=== PATIENT | male | born 1960 | race Caucasian/White ===

== ENCOUNTER 2020-07-22 09:45 | Outpatient (REF) | payer MEDICARE, OTHER, SELFPAY | END 2020-07-22 09:46 | disposition home or self-care (01) | LOC: HO.LAB 09:45 | PROVIDERS: Visit Provider Internal Medicine | DX: Z20.828 Contact with and (suspected) exposure to other viral communicable diseases (principal) | CPT/HCPCS: C9803; U0003 ==

== ENCOUNTER 2020-08-09 16:21 | Emergency (ER) | payer MEDICARE, OTHER, SELFPAY ==
--- NOTE | 2020-08-09 | XR_ITS ---
EXAMINATION: XR CHEST CLINICAL INFORMATION: Chest pain COMPARISON: Chest x-ray 09/25/2012 TECHNIQUE: 2 views of the chest were obtained. FINDINGS: Lungs are clear. No pulmonary vascular congestion. There is no pleural effusion. The heart size is normal. The cardiac and mediastinal contours are normal. Orthopedic plate and screw at lower cervical spine. No acute osseous abnormality. XR/XR chest 2V IMPRESSION: Unremarkable examination.
[2020-08-09 16:33] VITALS: BP 140/68; PULSE 93; RESP 20; TEMP 36.9; O2SAT 96; BMI 28.8
--- NOTE | 2020-08-09 16:44 | PC.NURSE ---
charge notified pt needs ekg, legal secretary receptionist also called.
--- NOTE | 2020-08-09 18:02 | PC.NURSE ---
marcela performed- nsr, brought back to charge to give to
[2020-08-09 18:04] VITALS: BP 141/72; PULSE 91; RESP 20; O2SAT 97
--- NOTE | 2020-08-09 19:06 | ED_ITS ---
HPI - Chest Pain General Chief Complaint: Chest Pain Stated Complaint: sholder and chest pain Time Seen by Provider: 08/09/20 18:24 Source: patient Mode of arrival: ambulatory Limitations: no limitations History of Present Illness HPI narrative: Patient comes to the emergency room complaining of chest pain for 4 days. Patient states yesterday got worse. Patient hold his primary care physician and he was asked to come to the emergency room. Patient states that he has 10/10 chest pain for the last 4 days, constant, radiating into his left shoulder blade. Patient states it is worse if he presses on his chest or if he moves his left arm. Denies cough, no fever, no abdominal pain. Patient is complaining of severe pain as he is watching TV and eating a large bag of [place] complaint: chest pain Related Data Home Medications Medication Instructions Recorded Confirmed albuterol sulfate [ProAir HFA] 2 puff PO Q4-6H PRN 08/09/20 08/09/20 aspirin 1 tab PO BEDTIME 08/09/20 08/09/20 atorvastatin 1 tab PO BEDTIME 08/09/20 08/09/20 blood pressure test kit-large 08/09/20 08/09/20 blood sugar diagnostic [FreeStyle 08/09/20 08/09/20 Lite Strips] cholecalciferol (vitamin D3) 1 tab PO QAM 08/09/20 08/09/20 [Vitamin D3] gabapentin 1 cap PO BEDTIME 08/09/20 08/09/20 insulin aspart U-100 [Novolog 10 unit SUBCUT BID 08/09/20 08/09/20 Flexpen U-100 Insulin] insulin glargine [Lantus Solostar 60 unit SUBCUT QAM 08/09/20 08/09/20 U-100 Insulin] lancets [TRUEplus Lancets] 08/09/20 08/09/20 metformin 1 tab PO BID 08/09/20 08/09/20 nicotine 1 patch TOPICAL DAILY 08/09/20 08/09/20 nicotine (polacrilex) 1 nuno PO Q4H 08/09/20 08/09/20 omeprazole 1 cap PO QAM 08/09/20 08/09/20 pen needle, diabetic [Pentips] 08/09/20 08/09/20 sildenafil [Viagra] 1 tab PO DAILY PRN 08/09/20 08/09/20 tiotropium bromide [Spiriva with 1 cap INHALATION DAILY 08/09/20 08/09/20 HandiHaler] varenicline [Chantix Starting 1 tab PO DIRECTED 08/09/20 08/09/20 Month Box] varicella-zoster [id number] (PF) 0.5 ml IM ONCE 08/09/20 08/09/20 [Shingrix (PF)] Allergies Allergy/AdvReac Type Severity Reaction Status Date / Time No Known Allergies Allergy Verified 08/09/20 16:33 Review of Systems Review of Systems: Constitutional : No Weight loss, No Fever, No Chills, No Night Sweats, No Fatigue, No Malaise ENT/Mouth : No Hearing loss, No Ear Pain, No Nasal Congestion, No Sinus Pain, No Hoarseness, No sore throat, No Rhinorrhea, No Swallowing Difficulty Eyes: No Eye Pain, No Swelling, No Redness, No Foreign Body, No Discharge, No Vision Changes Cardiovascular : Complaining of Chest Pain, No SOB, No Dyspnea on Exertion, No Orthopnea, No Edema, No Palpitations Respiratory : No Cough, No Sputum, No Wheezing, No Smoke Exposure, No Dyspnea Gastrointestinal : No Nausea, No Vomiting, No Diarrhea, No Constipation, No abdominal Pain, No Hematochezia, No Melena Genitourinary : no irregular bleeding, No Dysuria, No Urinary Frequency, No Hematuria, No Urinary Incontinence, No Urgency, No Flank Pain, No Urinary Flow Changes, No Hesitancy Musculoskeletal : Complaining of left scapular pain, No Myalgias, No Joint Swelling Skin : No Skin Lesions, No rash Neuro : No Weakness, No Numbness, No Paresthesias, No Loss of Consciousness, No Dizziness, No Headache Psych : No Anxiety/Panic, No Depression, No SI/HI/AH/VH, No Social Issues, Heme/Lymph: No Bruising, No Bleeding,No Lymphadenopathy Endocrine : No Polyuria, No Polydipsia, No Temperature Intolerance [facility] Past Medical History Medical History (Updated 08/10/20 @ 00:29 by Kasie Fung MD) Asthma Coronary artery disease Hyperlipidemia Hypertension Type 2 diabetes mellitus Social History Social History Advance Directives: No Advance Directives Information Provided: Yes Physical Exam Vital Signs: Vital Signs: Last Vital Signs Temp 97.8 F 08/09/20 23:27 Pulse 86 08/09/20 23:27 Resp 18 08/09/20 23:27 BP 129/77 08/09/20 23:27 Pulse Ox 98 08/09/20 23:27 Body Mass Index 28.8 Appearance: Alert. Oriented X3. No acute distress. Looks comfortable, no distress, comfortably in bed watching TV and eating Doritos Eyes: Pupils equal, round and reactive to light. ENT: Pharynx normal. Neck: Normal inspection. Neck supple. No lymph nodes noted. No crepitus CVS: Normal heart rate and rhythm. Pulses normal. Normal S1 and S2 reproducible chest pain to palpation and with left arm movement Respiratory: No respiratory distress. Breath sounds normal. No Wheezing. No rales Abdomen: Soft and nontender. No rigidity. No distention. good BS x4 Skin: Skin warm and dry. Normal skin color. Normal skin turgor. Extremities: No lower extremity edema. No lower extremity edema. No Lacerations. No Rash Neuro: Oriented X 3. No motor deficit. No sensory deficit. Moving all extermities. No slurred speech. Course Course Course Narrative: Patient no longer having chest pain. I discussed the labs with the patient, patient's troponin remained stable. Patient is well-appearing . I discussed with the patient that he may need a stress test, which he will discuss with his primary care physician. MDM - Chest Pain Lab Data Result diagrams: 08/09/20 19:52 08/09/20 19:52 Labs: Lab Results 08/09/20 08/09/20 08/09/20 Range/Units 19:52 19:52 19:52 WBC 8.9 (4.8-10.8) X10*3/uL RBC 4.71 (4.60-5.80) X10*6/uL Hgb 15.0 (14.0-18.0) g/dl Hct 44.9 (42-52) % MCV 95.3 (80-98) fL MCH 31.8 (27.0-33.0) pg MCHC 33.4 (31.0-36.0) g/dl RDW 12.0 (11.0-16.0) % Plt Count 236 (160-400) X10*3/uL MPV 10.8 (9.4-12.4) fL Immature Gran % (Auto) 0.3 (0.0-0.4) % Neut % (Auto) 55.7 (45-73) % Lymph % (Auto) 33.8 (20-40) % [place] % (Auto) 6.4 (2-11) % Eos % (Auto) 3.3 (0-4) % Baso % (Auto) 0.5 (0-2) % Lymph # (Auto) 3.0 (1.2-4.9) X10*3/uL [place] # (Auto) 0.6 (0.1-1.2) X10*3/uL Eos # (Auto) 0.3 (0.0-0.4) X10*3/uL Baso # (Auto) 0.0 (0.0-0.2) X10*3/uL Abs Immat Gran (auto) 0.03 (0.00-0.03) X10*3/uL Absolute Neuts (auto) 4.9 (2.0-8.3) X10*3/uL Absolute Nucleated RBC 0.000 (0.0-0.012) X10*3/uL Nucleated RBC % (auto) 0.0 (0.0-0.2) /100WBC Sodium 140 (135-145) mmol/L Potassium 4.3 (3.3-5.1) mmol/l Chloride 103 (96-108) mmol/L Carbon Dioxide 29 (22-29) mmol/L Anion Gap 12 (12-20) BUN 15 (9-16) mg/dL Creatinine 0.82 (0.5-1.4) mg/dL Estim Creat Clear Calc 105.4 Estimated GFR > 60 Random Glucose 238 H (60-115) mg/dL Calcium 8.9 (8.4-10.2) mg/dL Troponin I High Sens 9.0 (<3.5-35.0) ng/L 08/09/20 Range/Units 23:26 WBC (4.8-10.8) X10*3/uL RBC (4.60-5.80) X10*6/uL Hgb (14.0-18.0) g/dl Hct (42-52) % MCV (80-98) fL MCH (27.0-33.0) pg MCHC (31.0-36.0) g/dl RDW (11.0-16.0) % Plt Count (160-400) X10*3/uL MPV (9.4-12.4) fL Immature Gran % (Auto) (0.0-0.4) % Neut % (Auto) (45-73) % Lymph % (Auto) (20-40) % [place] % (Auto) (2-11) % Eos % (Auto) (0-4) % Baso % (Auto) (0-2) % Lymph # (Auto) (1.2-4.9) X10*3/uL [place] # (Auto) (0.1-1.2) X10*3/uL Eos # (Auto) (0.0-0.4) X10*3/uL Baso # (Auto) (0.0-0.2) X10*3/uL Abs Immat Gran (auto) (0.00-0.03) X10*3/uL Absolute Neuts (auto) (2.0-8.3) X10*3/uL Absolute Nucleated RBC (0.0-0.012) X10*3/uL Nucleated RBC % (auto) (0.0-0.2) /100WBC Sodium (135-145) mmol/L Potassium (3.3-5.1) mmol/l Chloride (96-108) mmol/L Carbon Dioxide (22-29) mmol/L Anion Gap (12-20) BUN (9-16) mg/dL Creatinine (0.5-1.4) mg/dL Estim Creat Clear Calc Estimated GFR Random Glucose (60-115) mg/dL Calcium (8.4-10.2) mg/dL Troponin I High Sens 7.3 (<3.5-35.0) ng/L Scores Heart Score History: -0- slightly suspicious ECG: -0- normal Age: -1- >45 - <65 Risk factory: -1- 1 or 2 risk factors Troponin: -0- < or = normal limit Score: 2 Risk: 1.7% Discharge Plan Discharge Clinical Impression: Atypical chest pain Patient Disposition: Home, Self-Care Instructions: Chest Pain (ED) Additional Instructions: Please follow-up with your primary care physician tomorrow. If you have any worsening or new symptoms, please return to the emergency room or call 911 Prescriptions: No Action metformin 500 mg tablet 1 tab PO BID RF: 0 atorvastatin 80 mg tablet 1 tab PO BEDTIME RF: 0 (DME) FreeStyle Lite Strips Strip MISCELLANEOUS TID RF: 0 sildenafil [Viagra] 25 mg tablet 1 tab PO DAILY PRN (Reason: Erectile Dysfunction) RF: 0 aspirin 81 mg tablet,delayed release (DR/EC) 1 tab PO BEDTIME RF: 0 nicotine 21 mg/24 hr patch 24 hour 1 patch topical DAILY RF: 0 gabapentin 300 mg capsule 1 cap PO BEDTIME RF: 0 omeprazole 20 mg capsule,delayed release(DR/EC) 1 cap PO QAM RF: 0 albuterol sulfate [ProAir HFA] 90 mcg/actuation HFA aerosol inhaler 2 puff PO Q4-6H PRN (Reason: Dyspnea) RF: 0 cholecalciferol (vitamin D3) [Vitamin D3] 10 mcg (400 unit) tablet 1 tab PO QAM RF: 0 nicotine (polacrilex) 2 mg lozenge 1 nuno PO Q4H RF: 0 insulin aspart U-100 [Novolog Flexpen U-100 Insulin] 100 unit/mL (3 mL) insulin pen 10 unit subcut BID RF: 0 Spiriva with HandiHaler 18 mcg capsule, w/inhalation device 1 cap inhalation DAILY RF: 0 Chantix Starting Month Box 0.5 mg (11)- 1 mg (42) tablets,dose pack 1 tab PO DIRECTED RF: 0 Lantus Solostar U-100 Insulin 100 unit/mL (3 mL) insulin pen 60 unit subcut QAM RF: 0 (DME) blood pressure test kit-large Kit MISCELLANEOUS QAM RF: 0 (DME) pen needle, diabetic [Pentips] 32 gauge x 5/32 needle MISCELLANEOUS TID RF: 0 (DME) lancets [TRUEplus Lancets] 33 gauge misc MISCELLANEOUS TID RF: 0 Shingrix (PF) 50 mcg/0.5 mL suspension for reconstitution 0.5 ml IM ONCE RF: 0
[2020-08-09] MEDS: Aspirin 325 MG TABLET PO (19:29)
--- NOTE | 2020-08-09 19:42 | ECG_ITS ---
Test Reason : CHEST PAIN Blood Pressure : / mmHG Vent. Rate : 082 BPM Atrial Rate : 082 BPM P-R Int : 150 ms QRS Dur : 086 ms QT Int : 390 ms P-R-T Axes : 051 010 063 degrees QTc Int : 455 ms Normal sinus rhythm Normal ECG When compared with ECG of 23-SEP-2012 11:15, No significant change was found Referred By: Kasie Fung Electronically Signed By:MAN MCPHERSON
[2020-08-09 19:57] LABS: MANUAL DIFF FLAG NO
[2020-08-09 19:59] LABS: Basophils Percent Auto 0.5 % (0-2); Eosinophils Absolute Auto 0.3 X10*3/uL (0.0-0.4); Eosinophils Percent Auto 3.3 % (0-4); Hematocrit 44.9 % (42-52); Imm Gran Abs Auto 0.03 X10*3/uL (0.00-0.03); Imm Gran Pct Auto 0.3 % (0.0-0.4); Lymphocytes Percent Auto 33.8 % (20-40); Mean Corpuscular HGB Conc 33.4 g/dl (31.0-36.0); Mean Corpuscular Hemoglobin 31.8 pg (27.0-33.0); Mean Corpuscular Volume 95.3 fL (80-98); Mean Platelet Volume 10.8 fL (9.4-12.4); Monocytes Absolute Auto 0.6 X10*3/uL (0.1-1.2); Monocytes Percent Auto 6.4 % (2-11); Neutrophils Absolute Auto 4.9 X10*3/uL (2.0-8.3); Neutrophils Percent Auto 55.7 % (45-73); Platelet Count 236 X10*3/uL (160-400); Red Blood Count 4.71 X10*6/uL (4.60-5.80); White Blood Count 8.9 X10*3/uL (4.8-10.8)
--- NOTE | 2020-08-09 20:05 | PC.NURSE ---
PER , SECOND EKG ORDER IS AN ACCIDENTAL DUPLICATE ORDER. MD TO CANCEL ORDER. NSR ON WELDER MANUFACTURE, VITAL SIGNS STABLE AT THIS TIME. MEDICATED WITH ASPIRIN 325MG ORDERED. REPORTS 9/10 CHEST PAIN AND IS TUNISIAN SPEAKING. WILL CONTINUE TO MONITOR.
[2020-08-09 20:24] LABS: Anion Gap 12 (12-20); Blood Urea Nitrogen 15 mg/dL (9-16); Calcium 8.9 mg/dL (8.4-10.2); Carbon Dioxide 29 mmol/L (22-29); Chloride 103 mmol/L (96-108); Creatinine Clr Calc Pharmacy 105.4; Estimated Glomerular Filt Rate > 60; Glucose Random 238 mg/dL (60-115); Potassium 4.3 mmol/l (3.3-5.1); Sodium 140 mmol/L (135-145)
[2020-08-09 21:49] VITALS: BP 131/74; PULSE 78; RESP 18; TEMP 36.8; O2SAT 96
[2020-08-09 23:27] VITALS: BP 129/77; PULSE 86; RESP 18; TEMP 36.6; O2SAT 98
[2020-08-09 23:56] LABS: Troponin-I High Sensitivity 7.3 ng/L (<3.5-35.0)
== END 2020-08-10 00:57 | disposition home or self-care (01) ==
PROVIDERS: Emergency Provider Emergency Medicine
DX: R07.89 Other chest pain (principal); M25.512 Pain in left shoulder; I10 Essential (primary) hypertension; E11.9 Type 2 diabetes mellitus without complications; I25.10 Atherosclerotic heart disease of native coronary artery without angina pectoris; Z79.82 Long term (current) use of aspirin; Z79.899 Other long term (current) drug therapy; Z79.4 Long term (current) use of insulin
CPT/HCPCS: 36415; 71046; 80048; 84484; 85025; 93005; 99283; 99284

== ENCOUNTER 2022-05-16 08:21 | Outpatient (REF) | payer MEDICARE, OTHER, SELFPAY ==
--- NOTE | ~2022-05-16 | US_ITS ---
EXAMINATION: US ABDOMEN COMPLETE CLINICAL INFORMATION: Right upper quadrant pain. COMPARISON: Ultrasound abdomen complete 11/05/2017. CT abdomen and pelvis 09/24/2011. TECHNIQUE: Real-time imaging of the abdominal viscera. FINDINGS: PANCREAS: The head and body the pancreas are normal. The tail is not well visualized due to bowel gas. ABDOMINAL AORTA: The proximal, mid, and distal segments are normal in caliber. INFERIOR VENA CAVA: Visualized portions are normal. LIVER: The liver is normal in size. The liver contour is normal. Liver echotexture is increased. No focal hepatic lesion. There is no intrahepatic biliary duct dilatation seen. GALLBLADDER: Normal. The gallbladder is physiologically distended without evidence of stones, sludge, polyps, wall thickening or pericholecystic fluid. COMMON BILE DUCT: Normal in caliber measuring 0.2 cm in diameter. RIGHT KIDNEY: Normal. No hydronephrosis. No renal calculi or focal parenchymal lesions. The kidney measures 12.8 cm in maximum dimension. LEFT KIDNEY: There is a 1.4 cm cyst in the mid to lower pole. No hydronephrosis or renal calculi. The kidney measures 13.1 cm in maximum dimension. SPLEEN: Normal. The spleen measures 11.6 cm in maximum dimension. FREE FLUID: None. US/US abdomen complete IMPRESSION: Echogenic liver probably representing fatty infiltration. Normal-appearing gallbladder. Small left renal cyst. Limited visualization of the tail of the pancreas.
== END 2022-05-16 08:22 | disposition home or self-care (01) ==
LOC: HO.US 08:21
PROVIDERS: Visit Provider Nurse Practitioner Primary Care
DX: R10.11 Right upper quadrant pain (principal)
CPT/HCPCS: 76700

== ENCOUNTER → 2022-06-14 14:58 | Outpatient (BNVA) | payer MEDICARE, MEDICAID, SELFPAY | PROVIDERS: PCP Nurse Practitioner Primary Care; Referring Provider Nurse Practitioner Primary Care; Visit Provider Nurse Practitioner | DX: Z01.818 Encounter for other preprocedural examination (principal); K21.9 Gastro-esophageal reflux disease without esophagitis; R10.11 Right upper quadrant pain; K59.00 Constipation, unspecified; Z86.010 Personal history of colon polyps; Z80.0 Family history of malignant neoplasm of digestive organs | CPT/HCPCS: 99202 ==

== ENCOUNTER 2022-10-18 11:36 | Day surgery (SDC) | payer MEDICARE, MEDICAID, SELFPAY ==
[2022-10-13 14:40] VITALS: BMI 28.9
--- NOTE | 2022-10-17 10:32 | HO.ANESPROP2 ---
Documented by User: Herlinda Graf NP 10/17/22 10:33 HPI - Anesthesia Eval Consult details Narrative: 62yo M for Colonoscopy PMFSH Active Problems Active Problems: All Active Problems (Updated 10/12/22 @ 10:59 by Nelli Bruno PA-C) Coronary artery disease (Acute) Left ventricular hypertrophy (Acute) Hypertension (Acute) Hyperlipidemia (Acute) Nicotine dependence, cigarettes, uncomplicated (Acute) Tubular adenoma of colon (Acute ~2011) Chronic idiopathic constipation (Acute) GERD (gastroesophageal reflux disease) (Acute) Cervical spondylosis with myelopathy (Acute) Anxiety (Acute) Past Medical History Medical History (Updated 10/12/22 @ 10:59 by Nelli Bruno PA-C) Asthma Coronary artery disease Hyperlipidemia Hypertension Nicotine dependence, cigarettes, uncomplicated Tubular adenoma of colon (~2011) Type 2 diabetes mellitus Family History Family History (Updated 06/14/22 @ 15:13 by VISHAL Doshi) Maternal Uncle Prostate cancer Family/Other Skin cancer Surgical History Surgical History (Updated 10/12/22 @ 10:52 by Nelli Bruno PA-C) History of cardiac cath (~2011) History of cervical discectomy History of colonoscopy Social History Social History (Updated 06/14/22 @ 15:14 by VISHAL Doshi) Alcohol intake: current Alcohol intake frequency: holidays/special occasions only Patient Tobacco Use Status: Current everyday Tobacco user Cigarettes Per Day: 10 Are you DNR?: No Advance Directives: No Advance Directives Information Provided: Yes Meds Allergies Allergy/AdvReac Type Severity Reaction Status Date / Time No Known Allergies Allergy Verified 06/14/22 15:09 Home Medications Medication Instructions Recorded Confirmed Last Taken Type albuterol sulfate 90 mcg/actuation 2 puff PO Q4-6H PRN Dyspnea 08/09/20 10/13/22 Unknown History aerosol inhaler (ProAir HFA) aspirin 81 mg tablet,delayed 1 tab PO BEDTIME 08/09/20 10/13/22 10/15/22 History release atorvastatin 80 mg tablet 1 tab PO BEDTIME 08/09/20 10/13/22 08/08/20 History blood pressure test kit-large 08/09/20 08/09/20 Unknown History blood sugar diagnostic (FreeStyle 08/09/20 08/09/20 Unknown History Lite Strips) cholecalciferol (vitamin D3) 10 1 tab PO QAM 08/09/20 10/13/22 08/09/20 History mcg (400 unit) tablet (Vitamin D3) gabapentin 300 mg capsule 1 cap PO BEDTIME 08/09/20 10/13/22 08/08/20 History insulin aspart U-100 100 unit/mL 10 unit subcut BID 08/09/20 08/09/20 08/09/20 History (3 mL) subcutaneous pen (Novolog FlexPen U-100 Insulin aspart) lancets 33 gauge (TRUEplus Lancets) 08/09/20 08/09/20 Unknown History omeprazole 20 mg capsule,delayed 1 cap PO QAM 08/09/20 10/13/22 08/09/20 History release pen needle, diabetic 32 gauge x 08/09/20 08/09/20 Unknown History (Pentips) sildenafil 25 mg tablet (Viagra) 1 tab PO DAILY PRN Erectile 08/09/20 10/13/22 Unknown History Dysfunction tiotropium bromide 18 mcg capsule 1 cap inhalation DAILY 08/09/20 10/13/22 08/09/20 History with inhalation device (Spiriva with HandiHaler) ammonium lactate 12 % lotion topical 06/14/22 Unknown History clotrimazole 1 % topical cream appl topical 06/14/22 Unknown History insulin glargine 100 unit/mL (3 68 unit subcut QAM 06/14/22 10/13/22 Unknown History mL) subcutaneous pen (Lantus Solostar U-100 Insulin) metformin 750 mg tablet,extended 1 tab PO BID 10/13/22 10/13/22 Unknown History release 24 hr Exam Exam Date and Time: October 17, 2022 1032 Height,Weight and Vital Signs: Height 5 ft 9 in Weight 88.904 kg Assessment and Plan Assessment Anesthesia Assessment: Chart Reviewed Documented by User: Liliane Copeland MD 10/18/22 12:02 PMFSH Past Medical History Medical History (Updated 10/12/22 @ 10:59 by Nelli Bruno PA-C) Asthma Coronary artery disease Hyperlipidemia Hypertension Nicotine dependence, cigarettes, uncomplicated Tubular adenoma of colon (~2011) Type 2 diabetes mellitus Family History Family History (Updated 06/14/22 @ 15:13 by VISHAL Doshi) Maternal Uncle Prostate cancer Family/Other Skin cancer Surgical History Surgical History (Updated 10/12/22 @ 10:52 by Nelli Bruno PA-C) History of cardiac cath (~2011) History of cervical discectomy History of colonoscopy History of Problems with Anesthesia: No Social History Social History (Updated 06/14/22 @ 15:14 by VISHAL Doshi) Alcohol intake: current Alcohol intake frequency: holidays/special occasions only Patient Tobacco Use Status: Current everyday Tobacco user Cigarettes Per Day: 10 Are you DNR?: No Advance Directives: No Advance Directives Information Provided: Yes Meds Allergies Allergy/AdvReac Type Severity Reaction Status Date / Time No Known Allergies Allergy Verified 06/14/22 15:09 Home Medications Medication Instructions Recorded Confirmed Last Taken Type albuterol sulfate 90 mcg/actuation 2 puff PO Q4-6H PRN Dyspnea 08/09/20 10/13/22 Unknown History aerosol inhaler (ProAir HFA) aspirin 81 mg tablet,delayed 1 tab PO BEDTIME 08/09/20 10/13/22 10/15/22 History release atorvastatin 80 mg tablet 1 tab PO BEDTIME 08/09/20 10/13/22 08/08/20 History blood pressure test kit-large 08/09/20 08/09/20 Unknown History blood sugar diagnostic (FreeStyle 08/09/20 08/09/20 Unknown History Lite Strips) cholecalciferol (vitamin D3) 10 1 tab PO QAM 08/09/20 10/13/22 08/09/20 History mcg (400 unit) tablet (Vitamin D3) gabapentin 300 mg capsule 1 cap PO BEDTIME 08/09/20 10/13/22 08/08/20 History insulin aspart U-100 100 unit/mL 10 unit subcut BID 08/09/20 08/09/20 08/09/20 History (3 mL) subcutaneous pen (Novolog FlexPen U-100 Insulin aspart) lancets 33 gauge (TRUEplus Lancets) 08/09/20 08/09/20 Unknown History omeprazole 20 mg capsule,delayed 1 cap PO QAM 08/09/20 10/13/22 08/09/20 History release pen needle, diabetic 32 gauge x 08/09/20 08/09/20 Unknown History (Pentips) sildenafil 25 mg tablet (Viagra) 1 tab PO DAILY PRN Erectile 08/09/20 10/13/22 Unknown History Dysfunction tiotropium bromide 18 mcg capsule 1 cap inhalation DAILY 08/09/20 10/13/22 08/09/20 History with inhalation device (Spiriva with HandiHaler) ammonium lactate 12 % lotion topical 06/14/22 Unknown History clotrimazole 1 % topical cream appl topical 06/14/22 Unknown History insulin glargine 100 unit/mL (3 68 unit subcut QAM 06/14/22 10/13/22 Unknown History mL) subcutaneous pen (Lantus Solostar U-100 Insulin) metformin 750 mg tablet,extended 1 tab PO BID 10/13/22 10/13/22 Unknown History release 24 hr Exam Airway Mallampati Class: II TM Dist: >3cm Neck ROM: Full Heart: rrr Lungs: cta Assessment and Plan Assessment Anesthesia Assessment: Anesthesia Plan Discussed and Smoking Cess. Discussed Final Anesthetic Review History of Problems with Anesthesia: No ASA Class: III and Final Preanesthetic Review: No Changes in Pt Med Stat, Meds/Allgs Chart Reviewed, Consent Obtained/Reviewed and Anes Risks/Benef Reviewed Patient Risk: Intermediate Procedure Risk: Intermediate Anesthetic Plan Anesthetic Plan: MAC: Disposition: Standard PACU
[2022-10-18 11:40] VITALS: BP 109/75; PULSE 88; RESP 18; TEMP 36.8; O2SAT 97
[2022-10-18 11:50] LABS: Glucose, Whole Blood 99 mg/dL (60-115)
--- NOTE | 2022-10-18 11:52 | MHC.SHP ---
Pre-Procedural Eval Section A Date of Service: 10/18/22 Section B Chief Complaint: Screening Relevant Family History (Specify if Yes): No Relevant Social History: Tobacco Use Present Medications: see Short Stay Collaborative assessment Medical History: Significant History (Asthma Smoker Left ventricular hypertrophy Hypertension High cholesterol Diabetes Cervical spondylosis with myelopathy History of tubular adenoma GERD Constipation Anxiety) History of Previous Operations: Relevant previous surgery/procedure and date(s) (C6-C7 discectomy and anterior fusion Cardiac catheterization *) Allergies: Allergies Allergy/AdvReac Type Severity Reaction Status Date / Time No Known Allergies Allergy Verified 06/14/22 15:09 Review of Systems Sugical H&P ROS: Negative: Constitution, Cardiovascular, Respiratory, Neurological, Psychiatric, Hem-Onc, Allergic/Immunologic, Gastrointestinal, Genitourinary, Musculoskeletal, Integumentary, Endocrine and Eyes/Ears/Nose/Throat Exam Surgical H&P Exam: Normal: HEENT, Normal: Heart, Normal: Lungs, Normal: Extremities, Normal: Abdomen, Normal: Skin and Normal: Neurological Plan Diagnosis/Plan: Unchanged I have reviewed the history and physical and performed a pertinent physical examination on my patient. No changes have occurred unless specified. Time Spent With Patient Time: Total time managing care of this patient today ____ minutes.
[2022-10-18] MEDS: Lactated Ringers 1,000 ML 100 ML IVCONT (12:00)
--- NOTE | 2022-10-18 12:39 | P.OP_ITS ---
Operative Note Operative Note Date of Service: 10/18/22 Narrative: Operative Information Procedure Description: Colonoscopy Indication: screening Anesthesia: MAC COLONOSCOPY Instrument: Olympus variable stiffness pediatric scope 190L Colonoscopy Monitoring: Vital signs and clinical assessment, continuous EKG monitoring, Pulse oximetry, Carbon Dioxide monitoring and blood pressure monitoring were done throughout the procedure. Colon withdrawal time was 18 minutes. Procedure: The patient was placed in the left lateral decubitis position and pre-procedure medications were administered. After a digital rectal examination of the ano-rectum, the video colonoscope was inserted into the rectum and advanced through the colon to the cecum/TI. The colonoscope was slowly withdrawn in a retrograde panoramic fashion and the colon mucosa was carefully examined including a retroflexed view of the rectum. Findings and interventions are described below. Procedure Difficulty: easy Findings: Terminal Ileum-normal Cecum:normal Ascending Colon: few diverticula noted Transverse Colon -normal Descending Colon:normal Sigmoid Colon: moderate diverticulosis, x 3 sessile polyps 10-11 mm removed with cold snare Rectum: Retroflexion with small internal hemorrhoids, grade I with skin tag noted, x2 sessile polyps 10-12 mm removed with cold snare Anorectum - normal Colon preparation: [place] Bowel Preparation Scale Right colon; 2 Transverse colon: 2 Left colon; 2 (0 = Unprepared colon segment with mucosa not seen due to solid stool that cannot be cleared. 1 = Portion of mucosa of the colon segment seen, but other areas of the colon segment not well seen due to staining, residual stool and/or opaque liquid. 2 = Minor amount of residual staining, small fragments of stool and/or opaque liquid, but mucosa of colon segment seen well. 3 = Entire mucosa of colon segment seen well with no residual staining, small fragments of stool or opaque liquid) Impression and Post Procedure Diagnosis: polyps internal hemorrhoids diverticular disease Plan: High fiber diet leaflet Avoid straining at stool, epsom salts and sitz bath, anusol supps or cream Repeat Colonoscopy in 3 years if adenomatous polyps, 5 yrs if hyperplastic or earlier if clinically indicated Above findings were reviewed with the patient and relevant handouts were provided if indicated.
[2022-10-18 12:45] VITALS: BP 93/65; PULSE 78; RESP 18; TEMP 36.5; O2SAT 99
[2022-10-18 13:00] VITALS: BP 112/74; PULSE 80; RESP 16; TEMP 36.8; O2SAT 98
[2022-10-18 13:10] VITALS: BP 111/72; PULSE 81; RESP 16; TEMP 36.8; O2SAT 97
== END 2022-10-18 14:29 | disposition home or self-care (01) ==
PROVIDERS: PCP Nurse Practitioner Primary Care; Visit Provider Internal Medicine Gastroenterology
PROC: 0DJD8ZZ Inspection of Lower Intestinal Tract, Via Natural or Artificial Opening Endoscopic (ICD-10-PCS; CPT 45378; principal; 2022-10-18 13:30)
DX: Z12.11 Encounter for screening for malignant neoplasm of colon (principal); Z86.010 Personal history of colon polyps; K63.5 Polyp of colon; K62.1 Rectal polyp; K57.30 Diverticulosis of large intestine without perforation or abscess without bleeding; K64.0 First degree hemorrhoids; K64.4 Residual hemorrhoidal skin tags; K59.00 Constipation, unspecified; K21.9 Gastro-esophageal reflux disease without esophagitis; J45.909 Unspecified asthma, uncomplicated; I10 Essential (primary) hypertension; E78.00 Pure hypercholesterolemia, unspecified; E11.9 Type 2 diabetes mellitus without complications; Z79.4 Long term (current) use of insulin; Z79.82 Long term (current) use of aspirin; Z79.51 Long term (current) use of inhaled steroids; Z79.899 Other long term (current) drug therapy; F17.210 Nicotine dependence, cigarettes, uncomplicated
CPT/HCPCS: 45385; 82947; 88305

== ENCOUNTER 2022-11-03 13:02 | Outpatient (REF) | payer MEDICARE, MEDICAID, SELFPAY ==
--- NOTE | ~2022-11-03 | CT_ITS ---
EXAMINATION: LUNG CANCER SCREENING CT CHEST WITHOUT CONTRAST CLINICAL INFORMATION: Current smoker with 42 pack year history COMPARISON: None TECHNIQUE: Multidetector volumetric CT imaging of the chest was obtained noncontrast using low dose screening CT technique. Axial thin section 0.625 mm reformations in soft tissue and lung windows were obtained. Sagittal and coronal reformations were obtained. Axial MIP images were also created and reviewed. This CT examination was performed using dose optimization techniques as appropriate, variously including the following: *Automated exposure control *Adjustment of mA and/or kV according to patient size (this includes techniques or standardized protocols for targeted exams where dose is matched to indication/reason for exam; i.e. extremities or head) *Use of iterative reconstruction technique TOTAL EXAM DLP: 69 mGy-cm. FINDINGS: PULMONARY NODULES: No suspicious pulmonary nodules. Scattered punctate calcified granulomata. There is a subpleural 2 mm nodule in the right lower lobe on series 5, image 478. LUNGS / PLEURA: Mild emphysema. Diffuse mild bronchial wall thickening without bronchiectasis. No pleural effusion or pneumothorax. MEDIASTINUM / IRMA: Heart normal in size without pericardial effusion. Great vessels normal caliber. No lymphadenopathy. Coronary calcifications present. Imaged thyroid gland unremarkable. CHEST WALL / AXILLA: Unremarkable. UPPER ABDOMEN: Included portions grossly unremarkable allowing for limitations in technique. OSSEOUS STRUCTURES: No acute or suspicious osseous abnormalities. CT/CT lung screening IMPRESSION: * No evidence of pulmonary malignancy. * Mild emphysema. ASSESSMENT: Lung RADS category: 2. Benign appearance or behavior. Nodules with a very low likelihood of becoming a clinically active cancer due to size or lack of growth. Continue annual screening with low-dose CT in 12 months. Probability of malignancy less than 1%. INCIDENTAL FINDINGS (S CATEGORY): None. RECOMMENDATION: Follow up low dose CT chest in 1 year.
== END 2022-11-03 13:03 | disposition home or self-care (01) ==
LOC: HO.CT 13:02
PROVIDERS: PCP Nurse Practitioner Primary Care; Visit Provider Physician Assistant Medical
DX: Z12.2 Encounter for screening for malignant neoplasm of respiratory organs (principal); Z87.891 Personal history of nicotine dependence
CPT/HCPCS: 71271; G0296

== ENCOUNTER 2023-08-24 10:17 | Outpatient (REF) | payer MEDICARE, MEDICAID, SELFPAY ==
[2023-08-24 12:44] LABS: Anion Gap 10 (12-20); Blood Urea Nitrogen 12 mg/dL (9-16); Calcium 9.2 mg/dL (8.4-10.2); Carbon Dioxide 30 mmol/L (22-29); Chloride 106 mmol/L (96-108); Cholesterol 118 mg/dL (<200); Estimated Glomerular Filt Rate > 60; Glucose Random 88 mg/dL (60-115); HDL Cholesterol 55 mg/dL (>40); LDL Cholesterol Calculated 52 mg/dL (<100); Potassium 4.4 mmol/L (3.3-5.1); Sodium 142 mmol/L (135-145); Triglycerides 55 mg/dL (<150)
== END 2023-08-24 10:18 | disposition home or self-care (01) ==
LOC: HO.HHCL 10:17
PROVIDERS: Visit Provider Nurse Practitioner Primary Care
DX: E11.69 Type 2 diabetes mellitus with other specified complication (principal); E78.5 Hyperlipidemia, unspecified
CPT/HCPCS: 36415; 80048; 80061

== ENCOUNTER 2023-11-06 15:14 | Outpatient (REF) | payer MEDICARE, MEDICAID, SELFPAY ==
--- NOTE | ~2023-11-06 | CT_ITS ---
EXAMINATION: CT CHEST SCREENING CLINICAL INFORMATION: Current smoker. One pack per day for 43 pack-year total. Nicotine dependence, cigarettes, uncomplicated. COMPARISON: 11/03/2022 TECHNIQUE: Multidetector volumetric CT imaging of the chest is performed without contrast using low-dose technique. Additional 2D coronal and sagittal reformatted images and axial 3D maximum intensity projection (MIP) images were generated on the CT workstation. This CT examination was performed using dose optimization techniques as appropriate, variously including the following: *Automated exposure control *Adjustment of mA and/or kV according to patient size (this includes techniques or standardized protocols for targeted exams where dose is matched to indication/reason for exam; i.e. extremities or head) *Use of iterative reconstruction technique DLP: 165 mGy-cm FINDINGS: LUNGS: Multiple diffuse scattered calcified granulomas are seen. No suspicious pulmonary nodules are seen. Basilar atelectasis/scarring is present, most marked in the lingula. Mild emphysematous changes and diffuse mild bronchial wall thickening are noted. MEDIASTINUM: The mediastinum is normal. CORONARY ARTERY CALCIFICATION: Moderate. PLEURA: There is no pleural effusion. No pleural mass or thickening. AXILLA: No lymphadenopathy. UPPER ABDOMEN: Unremarkable OSSEOUS STRUCTURES: Unremarkable. CT/CT lung screen follow up IMPRESSION: No evidence of malignancy. ASSESSMENT: Lung-RADS category 1: Negative RECOMMENDATION: Routine annual low-dose CT screening in 12 months.
== END 2023-11-06 15:15 | disposition home or self-care (01) ==
LOC: HO.CT 15:14
PROVIDERS: PCP Nurse Practitioner Primary Care; Visit Provider Nurse Practitioner Family
DX: F17.210 Nicotine dependence, cigarettes, uncomplicated (principal)
CPT/HCPCS: 71250

== ENCOUNTER 2024-04-18 10:13 | Outpatient (REF) | payer MEDICARE, MEDICAID, SELFPAY ==
[2024-04-18 12:10] LABS: Anion Gap 11 (12-20); Blood Urea Nitrogen 17 mg/dL (9-16); Calcium 8.9 mg/dL (8.4-10.2); Carbon Dioxide 29 mmol/L (22-29); Chloride 107 mmol/L (96-108); Estimated Glomerular Filt Rate > 60; Glucose Random 209 mg/dL (60-115); Potassium 4.9 mmol/L (3.3-5.1); Sodium 142 mmol/L (135-145)
[2024-04-18 12:36] LABS: Prostate Specific Antigen 0.45 ng/mL (<0.05-4.0)
[2024-04-18 17:38] LABS: Microalbum/Creatinine Ratio Ur 13.2 ug/mg cr (<30)
== END 2024-04-18 10:14 | disposition home or self-care (01) ==
LOC: HO.HHCL 10:13
PROVIDERS: Visit Provider Nurse Practitioner Primary Care
DX: E11.69 Type 2 diabetes mellitus with other specified complication (principal); E78.5 Hyperlipidemia, unspecified; R39.198 Other difficulties with micturition; R39.11 Hesitancy of micturition; Z12.5 Encounter for screening for malignant neoplasm of prostate
CPT/HCPCS: 36415; 80048; 82043; 82570; 84153

== ENCOUNTER 2024-05-14 08:47 | Outpatient (AMB) | payer MEDICARE, MEDICAID, SELFPAY ==
[2024-05-14 08:56] VITALS: BP 130/78; PULSE 89; BMI 27.3
--- NOTE | 2024-05-14 08:56 | MHC.OFFVIS ---
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 Inspector Penetrant Required: Yes Inspector Penetrant Name: OLENA [id number] Allergies No Known Allergies Allergy (Verified 01/22/24 10:43) Medication List - Last Reconciled 05/14/24 by Slade Varma MD albuterol sulfate 90 mcg/actuation (ProAir HFA) 2 puffs PO Q4-6H PRN aspirin 1 tab PO BEDTIME blood pressure test kit-large blood sugar diagnostic (FreeStyle Lite Strips) cholecalciferol (vitamin D3) (Vitamin D3) 1 tab PO QAM gabapentin 1 cap PO BEDTIME insulin aspart U-100 (Novolog FlexPen U-100 Insulin aspart) 10 units subcut BID lancets (TRUEplus Lancets) omeprazole 1 cap PO QAM pen needle, diabetic (Pentips) tiotropium bromide (Spiriva with HandiHaler) 1 cap inhalation DAILY HPI Comments Details: Jabari was referred here because of precordial chest pain. Patient 63-year-old male with prior history of hypertension, diabetes, chronic smoker was about a month ago having precordial chest pressure. Symptoms happen randomly with walking sometimes at rest. Symptoms would subside within 10 minutes. There was no clear precipitating or relieving factors. Patient has no other associated symptoms. He said he tries to exercise much. Currently he is not having those symptoms again. He had a CT scan of the chest for lung screening with shows moderate coronary calcification consistent with underlying coronary artery disease. He denies prior having myocardial infarction. Denies having any vascular events or interventions in the past. He takes all his medications. He says diabetes under good control. He says blood pressure is under good control as well. He is currently not on statin therapy with last LDL is 52 mg/dL. [facility] Medical History Nicotine dependence, cigarettes, uncomplicated Tubular adenoma of colon (~2011) Type 2 diabetes mellitus Coronary artery disease Hyperlipidemia Hypertension Asthma Surgical History History of cervical discectomy History of colonoscopy History of cardiac cath (~2011) Family History Maternal Uncle Prostate cancer Family/Other Skin cancer Social History Alcohol intake: current Alcohol intake frequency: holidays/special occasions only Patient Tobacco Use Status: Current everyday Tobacco user Cigarettes Per Day: 10 Years Smoked: onset 20yo, 1/2-1ppd x 42yrs, 30pyh Review of Systems Const Denies weakness ENT Denies dizziness Card Denies chest pain, Denies chest pain with activity, Denies syncope, Denies rapid heart rate, Denies pedal edema, Denies edema, Denies leg edema, Denies lightheadedness, Denies palpitations, Denies dyspnea, Denies dyspnea on exertion and Denies orthopnea Resp Denies cough, Denies dyspnea and Denies dyspnea on exertion GI Denies hematochezia and Denies change in stool character Musc Denies abnormal gait, Denies muscle cramps, Denies muscle weakness, Denies numbness, Denies radiating pain into limb and Denies tingling Neuro Denies abnormal gait, Denies dizziness, Denies syncope, Denies numbness, Denies tingling and Denies weakness Endo Denies palpitations Physical Exam Vital Signs: Last Vital Signs Pulse 89 05/14/24 08:56 BP 130/78 05/14/24 08:56 BMI result Body Mass Index 27.3 Const General: cooperative, comfortable, no acute distress, alert, awake and Physically active Nutritional Appearance: average body habitus Orientation/consciousness: patient oriented x3 Limitations: no limitations HEENT Head: Yes normocephalic and Yes atraumatic Neck Neck: Yes trachea midline, Yes supple and Yes no JVD Resp Effort & Inspection: normal respiratory effort Auscultation: clear to auscultation bilaterally and diminished lung sounds Cardio Jugular venous distension: no JVD Palpation: normal PMI Rate: regular rate Rhythm: regular rhythm Heart sounds: S1 normal heart sound present, S2 normal heart sound present, no click, no gallops, no murmurs and no rubs GI Auscultation: normal bowel sounds Skin General skin exam: no rashes or lesions noted Neuro General: patient oriented x3 and no focal motor deficits Extrem General: Yes no clubbing, cyanosis or edema Psych Appearance: grossly normal Office Procedures EKG Details: EKG shows normal sinus rhythm normal EKG 30515-Atqhzmrsjxssubuod, Complete Assessment & Plan Assessment & Plan (1) Coronary artery disease: Code(s): I25.10 - Atherosclerotic heart disease of [place] coronary artery without angina pectoris Category: Medical Plan: Patient with moderate calcification on chest CT suggestive of underlying coronary atherosclerosis with multiple risk factors including smoking, diabetes, hypertension, age. His LDL is well optimized despite not being on statin therapy at this point time. He was having atypical precordial chest pain. This needs further evaluation for prognostically significant CAD. Will suggest exercise myocardial perfusion imaging to evaluate for the same. Further treatment based on the findings. Also suggest an echocardiogram given his multiple risk factors to evaluate LV systolic and diastolic function to evaluate for LVH as well as pulmonary hypertension. We discussed about complete smoking cessation. Continue aggressive diabetes management goal hemoglobin A1c less than 7%. Blood pressure is currently well optimized on current therapy. Importance of good blood pressure control was discussed. Currently not on any medications for treating blood pressure consider AMAN inhibitors given his diabetes for renal protection. Continue low-dose aspirin therapy. Will follow up in the clinic in 4 months time, sooner p.r.n.. Thank you for allowing me to partake in his care Orders: Orders CA echo transthoracic complete Today I25.10 - Atherosclerotic heart disease of [place] coronary artery without angina pectoris CA stress test Today I25.10 - Atherosclerotic heart disease of [place] coronary artery without angina pectoris NM cardiolite stress test 2 Weeks I25.10 - Atherosclerotic heart disease of [place] coronary artery without angina pectoris, R07.9 - Chest pain, unspecified Coding Level of Care Code New Pt Level 4 (01371) Diagnoses Coronary artery disease I25.10 CPT Codes EKG - CPT: 87975-[id number], Complete ([id number])
== END 2024-05-14 09:28 | disposition home or self-care (01) ==
PROVIDERS: PCP Nurse Practitioner Primary Care; Visit Provider Internal Medicine Cardiovascular Disease
DX: I25.10 Atherosclerotic heart disease of native coronary artery without angina pectoris (principal)
CPT/HCPCS: 93010; 99204

== ENCOUNTER → 2024-05-14 08:47 | Outpatient (BNVA) | payer MEDICARE, MEDICAID, SELFPAY | PROVIDERS: PCP Nurse Practitioner Primary Care; Visit Provider Internal Medicine Cardiovascular Disease | DX: I25.10 Atherosclerotic heart disease of native coronary artery without angina pectoris (principal); R00.1 Bradycardia, unspecified; R94.31 Abnormal electrocardiogram [ECG] [EKG] | CPT/HCPCS: 93005; 99202 ==

== ENCOUNTER 2024-07-23 10:05 | Emergency (ER) | payer MEDICARE, MEDICAID, SELFPAY ==
--- NOTE | ~2024-07-23 | XR_ITS ---
EXAMINATION: XR CHEST CLINICAL INFORMATION: chest pain COMPARISON: CT lung screening dated 11/06/2023 TECHNIQUE: Frontal view of the chest was obtained. FINDINGS: Lungs are clear. Heart and pulmonary vessels normal. No congestive change. Surgical changes are observed overlying the C-spine. XR/XR chest 1V IMPRESSION: No active disease. Electronically signed by: Frank Serrano MD 07/23/2024 11:19 AM [facility] [place]
--- NOTE | 2024-07-23 10:06 | ECG_ITS ---
Test Reason : CP Blood Pressure : / mmHG Vent. Rate : 100 BPM Atrial Rate : 100 BPM P-R Int : 136 ms QRS Dur : 084 ms QT Int : 346 ms P-R-T Axes : -05 047 -07 degrees QTc Int : 446 ms Sinus rhythm with occasional Premature ventricular complexes Otherwise normal ECG When compared to the previous EKG of No significant changes seen Referred By: Generic ED Physician Electronically Signed By:SHOBHA BRISENO MD
[2024-07-23 10:22] VITALS: BP 127/71; PULSE 99; RESP 18; TEMP 36.8; O2SAT 95; BMI 28.9
[2024-07-23 11:57] LABS: MANUAL DIFF FLAG NO
[2024-07-23 11:58] LABS: Basophils Percent Auto 0.5 % (0-2); Eosinophils Absolute Auto 0.2 X10*3/uL (0.0-0.4); Eosinophils Percent Auto 2.8 % (0-4); Hemoglobin 14.8 g/dl (14.0-18.0); Imm Gran Abs Auto 0.02 X10*3/uL (0.00-0.03); Imm Gran Pct Auto 0.3 % (0.0-0.4); Lymphocytes Percent Auto 30.3 % (20-40); Mean Corpuscular HGB Conc 34.4 g/dl (31.0-36.0); Mean Corpuscular Hemoglobin 31.9 pg (27.0-33.0); Mean Corpuscular Volume 92.7 fL (80.0-98.0); Mean Platelet Volume 10.1 fL (9.4-12.4); Monocytes Absolute Auto 0.7 X10*3/uL (0.1-1.2); Monocytes Percent Auto 10.1 % (2-11); Neutrophils Absolute Auto 3.7 x10*3/uL (2.0-8.3); Platelet Count 185 X10*3/uL (160-400); Red Blood Count 4.64 X10*6/uL (4.60-5.80); White Blood Count 6.5 X10*3/uL (4.8-10.8)
[2024-07-23 12:14] LABS: Alanine Aminotransferase 36 U/L (0-40); Albumin Level 4.1 g/dL (3.5-5.0); Alkaline Phosphatase 84 U/L (39-117); Anion Gap 10 (12-20); Aspartate Amino Transferase 30 U/L (5-37); Bilirubin Total 0.5 mg/dL (0.0-1.0); Blood Urea Nitrogen 16 mg/dL (9-16); Calcium 9.7 mg/dL (8.4-10.2); Carbon Dioxide 30 mmol/L (22-29); Chloride 105 mmol/L (96-108); Creatinine Clr Calc Pharmacy 100.3; Estimated Glomerular Filt Rate > 60; Glucose Random 261 mg/dL (60-115); Magnesium 1.9 mg/dL (1.6-2.6); Potassium 4.5 mmol/L (3.3-5.1); Sodium 140 mmol/L (135-145)
[2024-07-23 12:19] LABS: Troponin-I High Sensitivity 6.8 ng/L (<3.5-35.0)
--- NOTE | 2024-07-23 17:00 | ED.CHESTPAIN ---
HPI - Chest Pain General Chief Complaint: Chest Pain Stated Complaint: CP Related Data Home Medications ?Medication ?Instructions ?Recorded ?Confirmed albuterol sulfate 90 mcg/actuation 2 puff PO Q4-6H PRN Dyspnea 08/09/20 05/14/24 aerosol inhaler (ProAir HFA) aspirin 81 mg tablet,delayed 1 tab PO BEDTIME 08/09/20 05/14/24 release blood pressure test kit-large 08/09/20 08/09/20 blood sugar diagnostic (FreeStyle 08/09/20 08/09/20 Lite Strips) cholecalciferol (vitamin D3) 10 1 tab PO QAM 08/09/20 05/14/24 mcg (400 unit) tablet (Vitamin D3) gabapentin 300 mg capsule 1 cap PO BEDTIME 08/09/20 05/14/24 insulin aspart U-100 100 unit/mL 10 unit subcut BID 08/09/20 05/14/24 (3 mL) subcutaneous pen (Novolog FlexPen U-100 Insulin aspart) lancets 33 gauge (TRUEplus Lancets) 08/09/20 08/09/20 omeprazole 20 mg capsule,delayed 1 cap PO QAM 08/09/20 05/14/24 release pen needle, diabetic 32 gauge x 08/09/20 08/09/20 5/32 (Pentips Pen Needle) tiotropium bromide 18 mcg capsule 1 cap inhalation DAILY 08/09/20 05/14/24 with inhalation device (Spiriva with HandiHaler) Allergies Allergy/AdvReac Type Severity Reaction Status Date / Time No Known Allergies Allergy Verified 07/23/24 10:24 [facility] Past Medical History Medical History Nicotine dependence, cigarettes, uncomplicated Tubular adenoma of colon (~2011) Type 2 diabetes mellitus Coronary artery disease Hyperlipidemia Hypertension Asthma Surgical History History of cervical discectomy History of colonoscopy History of cardiac cath (~2011) Family History Family History Maternal Uncle Prostate cancer Family/Other Skin cancer Social History Social History Alcohol intake: current Alcohol intake frequency: holidays/special occasions only Patient Tobacco Use Status: Current everyday Tobacco user Cigarettes Per Day: 10 Years Smoked: onset 20yo, 1/2-1ppd x 42yrs, 30pyh Advance Directives: No Advance Directives Information Provided: No Physical Exam Vital Signs: Vital Signs: Last Vital Signs Temp 97.8 F 07/23/24 17:01 Pulse 88 07/23/24 17:01 Resp 18 07/23/24 17:01 BP 127/72 07/23/24 17:01 Pulse Ox 96 07/23/24 17:01 O2 Del Method Room Air 07/23/24 17:01 BMI result Body Mass Index 28.9 Course Course Course Narrative: This is an RME: Additional HPI, ROS, PE not included below will be deferred to primary provider. RME assessment and note performed by: Ella Rios PA-C This is a [id number]-male, with a hx of CAD, HLD, HTN, GERD, and anxiety, who presents to the ER with complaints of left sided CP that radiates to his left arm with tingling x 5 days. Patient states that this has been intermittent for the last 5 days however today has been constant. Patient is well-appearing, vital signs within normal limits. First troponin negative, will repeat. Chest x-ray unremarkable. Plan: Labs, EKG, chest x-ray, further ER evaluation needed. Reevaluation(s) Reevaluation #1: Patient left without completing treatment. Medical Decision Making Lab Data 07/23/24 11:53 07/23/24 11:53 Labs: Lab Results 07/23/24 07/23/24 Range/Units 11:53 16:41 WBC 6.5 (4.8-10.8) X10*3/uL RBC 4.64 (4.60-5.80) X10*6/uL Hgb 14.8 (14.0-18.0) g/dl Hct 43.0 (42.0-52.0) % MCV 92.7 (80.0-98.0) fL MCH 31.9 (27.0-33.0) pg MCHC 34.4 (31.0-36.0) g/dl RDW 12.0 (11.0-16.0) % Plt Count 185 (160-400) X10*3/uL MPV 10.1 (9.4-12.4) fL Immature Gran % (Auto) 0.3 (0.0-0.4) % Neut % (Auto) 56.0 (45-73) % Lymph % (Auto) 30.3 (20-40) % [place] % (Auto) 10.1 (2-11) % Eos % (Auto) 2.8 (0-4) % Baso % (Auto) 0.5 (0-2) % Lymph # (Auto) 2.0 (1.2-4.9) X10*3/uL [place] # (Auto) 0.7 (0.1-1.2) X10*3/uL Eos # (Auto) 0.2 (0.0-0.4) X10*3/uL Baso # (Auto) 0.0 (0.0-0.2) X10*3/uL Abs Immat Gran (auto) 0.02 (0.00-0.03) X10*3/uL Absolute Neuts (auto) 3.7 (2.0-8.3) x10*3/uL Absolute Nucleated RBC 0.000 (0.0-0.012) X10*3/uL Nucleated RBC % (auto) 0.0 (0.0-0.2) /100WBC Sodium 140 (135-145) mmol/L Potassium 4.5 (3.3-5.1) mmol/L Chloride 105 (96-108) mmol/L Carbon Dioxide 30 H (22-29) mmol/L Anion Gap 10 L (12-20) BUN 16 (9-16) mg/dL Creatinine 0.82 (0.5-1.4) mg/dL Estim Creat Clear Calc 100.3 Estimated GFR > 60 Random Glucose 261 H (60-115) mg/dL Calcium 9.7 D (8.4-10.2) mg/dL Magnesium 1.9 (1.6-2.6) mg/dL Total Bilirubin 0.5 (0.0-1.0) mg/dL AST 30 (5-37) U/L ALT 36 (0-40) U/L Alkaline Phosphatase 84 (39-117) U/L Troponin I High Sens 6.8 6.2 (<3.5-35.0) ng/L Total Protein 7.0 (6.5-8.0) g/dL Albumin 4.1 (3.5-5.0) g/dL Discharge Plan Discharge Clinical Impression: Chest pain Patient Disposition: Left W/O Completing Treatment Prescriptions: No Action (DME) FreeStyle Lite Strips Strip MISCELLANEOUS TID aspirin 81 mg tablet,delayed release (DR/EC) 1 tab PO BEDTIME gabapentin 300 mg capsule 1 cap PO BEDTIME omeprazole 20 mg capsule,delayed release(DR/EC) 1 cap PO QAM albuterol sulfate [ProAir HFA] 90 mcg/actuation HFA aerosol inhaler 2 puff PO Q4-6H PRN (Reason: Dyspnea) cholecalciferol (vitamin D3) [Vitamin D3] 10 mcg (400 unit) tablet 1 tab PO QAM insulin aspart U-100 [Novolog FlexPen U-100 Insulin] 100 unit/mL (3 mL) insulin pen 10 unit subcut BID Spiriva with HandiHaler 18 mcg capsule, w/inhalation device 1 cap inhalation DAILY (DME) blood pressure test kit-large Kit MISCELLANEOUS QAM (DME) pen needle, diabetic [Pentips Pen Needle] 32 gauge x 5/32 needle MISCELLANEOUS TID (DME) lancets [TRUEplus Lancets] 33 gauge misc MISCELLANEOUS TID Discharge Date/Time: 07/23/24 19:54
[2024-07-23 17:01] VITALS: BP 127/72; PULSE 88; RESP 18; TEMP 36.6; O2SAT 96
[2024-07-23 17:10] LABS: Troponin-I High Sensitivity 6.2 ng/L (<3.5-35.0)
--- NOTE | 2024-07-23 19:48 | PC.NURSE ---
pt gone from waiting room prior to 7pm, registration registering pt now so they can be taken off board
== END 2024-07-23 19:54 | disposition left against medical advice (07) ==
LOC: HO.ED 19:55
PROVIDERS: Physician Assistant Medical; Emergency Provider Emergency Medicine; PCP Nurse Practitioner Primary Care
DX: R07.9 Chest pain, unspecified (principal); E11.9 Type 2 diabetes mellitus without complications; I10 Essential (primary) hypertension; E78.5 Hyperlipidemia, unspecified; J45.909 Unspecified asthma, uncomplicated; F17.210 Nicotine dependence, cigarettes, uncomplicated; Z79.899 Other long term (current) drug therapy; Z79.82 Long term (current) use of aspirin; Z79.4 Long term (current) use of insulin
CPT/HCPCS: 36415; 71045; 80053; 83735; 84484; 85025; 93005; 99283

== ENCOUNTER → 2024-07-23 10:06 | Outpatient (BNV) | payer MEDICARE, MEDICAID, SELFPAY | PROVIDERS: PCP Nurse Practitioner Primary Care; Visit Provider Internal Medicine Cardiovascular Disease | DX: I49.3 Ventricular premature depolarization (principal) | CPT/HCPCS: 93010 ==

== ENCOUNTER → 2024-09-30 14:53 | Outpatient (REF) | payer MEDICARE, MEDICAID, SELFPAY ==
--- NOTE | 2024-09-30 15:03 | CA_ITS ---
Transthoracic Echocardiogram Patient (Last, First, Middle): Jabari Blunt, Gender: Male Date of : 1960 Age: 64 Procedure Date: 09/30/2024 Procedure Type: Transthoracic Echocardiogram Location: OP Height: 175.26 cm Weight: 86.18 kg BSA: 2.02 m2 Heart Rate: bpm BP: 122 / 72 mmHg Diagrammer: YESI Referring MD: Slade Varma MD Symptoms: I25.10 - Atherosclerotic heart disease of [place] coronary artery without... Study Quality: Adequate ECG Rhythm: Sinus Conclusions: - The left ventricular systolic function is normal. The calculated ejection fraction is 62% by biplane method. - No obvious valvular pathology seen on this study. Findings Left Ventricle Normal left ventricular cavity size. There is normal left ventricular wall thickness. The left ventricular systolic function is normal. The calculated ejection fraction is 62% by biplane method. There is no evidence of regional wall motion abnormalities. Diastolic function is normal for age. Right Ventricle Normal right ventricular cavity size and systolic function. Atria The left atrium is normal in size. The right atrium is normal in size. Aortic Valve There is a normal trileaflet aortic valve. There is no aortic valve stenosis. There is no aortic valve regurgitation. Mitral Valve The mitral valve appears normal. There is no mitral valve regurgitation. There is no mitral valve stenosis. Pulmonic Valve The pulmonic valve is likely normal. Tricuspid Valve There is trace tricuspid valve regurgitation. There is no evidence of pulmonary hypertension. Great Vessels The asc aorta is normal in size. Venous The inferior vena cava is normal in size and collapses greater than 50% with inspiration. Pericardium/Pleural There is no evidence of pericardial effusion. Prior Study Comparison No significant change compared to prior study dated: 09/15/2010. Recommendations, Care & Conclusions No obvious valvular pathology seen on this study. Measurements 2D Linear Measurements IVSd: 0.90 0.6-0.9/0.6-1.0 cm LVIDd: 4.61 3.9-5.3/4.2-5.9 cm LVIDd Index: 2.28 2.4-3.2/2.2-3.1 cm/m2 LVIDs: 2.89 2.0-3.6 cm LVPWd: 1.03 0.7-1.1 cm LA Diam: 3.70 2.7-3.8/3.0-4.0 cm LAIDs Index: 1.83 1.5-2.3 cm/m2 LV Mass: 189.29 67-162/88-224 g LV Mass Index: 93.71 43-95/49-115 g/m2 LVOT Diam: 2.00 3.0+(-)1.3 cm 2D Systolic Function EF 4C: 65.50 >55% EF 2C: 57.40 >55% EF BiP: 62.30 >55% Mitral Valve MV Pk E: 0.65 MV PK A: 0.80 MV Decel Time: 268.00 E/A: 0.80 E'Lateral: 7.18 E'Medial: 5.77 E/E' Med: 11.20 E/E' Lat: 9.00 PHT: 78.00 MVA PHT: 2.82 Decel [place]: 2.42 Aortic Valve AoV Pk Edy: 1.61 AoV Mn Edy: 1.08 AoV VTI: 0.34 AoV Pk Grad: 10.00 Aov Mn Grad: 5.00 BINH Cont.VTI: 2.17 LVOT LVOT Pk Edy: 1.14 LVOT Mn Edy: 0.75 LVOT VTI: 0.23 LVOT Pk Grad: 5.00 LVOT Mn Grad: 3.00 LVOT Diam: 2.00 LVOT Area: 3.14 Diastolic Function MV Pk E: 0.65 MV Pk A: 0.80 E/A: 0.80 E'Medial: 5.77 E/E' Med: 11.20 E' Laterial: 7.18 E/E' Lat: 9.00 Right Ventricle TAPSE (mm): 23.90 TVS' Edy: 15.90 Tricuspid Valve TR Pk Edy: 1.94 TR Pk Grad: 15.00 RA Press: 3.00 RVSP: 18.00 Great Vessels Aorta Sinus of Valsalva: 3.87 2.0-3.[address] [place]: 2.70 1.7-3.4 cm Ao Asc: 3.70 2.1-3.4 cm Updated in Other Vendor System with Status of Final Mario Cardenas MD electronically signed on 10/01/2024 11:06:15 AM with status of Final
--- OUTSIDE RECORDS SUMMARY | 2024-09-30 15:52 | XMS_ITS | Clinical Summary ---
Author Organization [employer] Address [address] [facility] [address] [place] [address] Care Team Providers Care E Tailer Name Role Phone Vikas Casiano NALLELY Primary Care Provider [phone] Allergies No known active allergies Medications albuterol 108 (90 Base) MCG/ACT inhaler Inhale 2 puffs every 4 (four) hours if needed. 020 Active TRUEplus Lancets 33G misc TEST BLOOD SUGAR 3 TIMES A DAY 022 Active FREESTYLE LITE test strip TEST BLOOD SUGAR 3 TIMES A DAY 022 Active betamethasone, augmented, (Diprolene AF) 0.05 % creamIndications: Rash of foot Apply twice daily to Left foot 50 g 023 Active acetaminophen (Tylenol Extra Strength) 500 MG tabletIndications :Low back pain radiating to left leg Take 1-2 tabs as needed up to TID for pain 60 tablet 023 Active diclofenac (Voltaren) 50 MG EC tabletIndications :Back Pain Do not crush, chew, or split. 14 tablet 023 Active cyclobenzaprine (Flexeril) 5 MG tabletIndications :Low back pain radiating to left leg 1-2 tabs as needed for muscle spasm up to TID for up to 10d 30 tablet 023 Active Pentips 32G X 4 MM miscIndications:T ype 2 diabetes mellitus treated with insulin ([facility]) Use as directed three times daily 100 each 11 024 Active cholecalciferol 10 MCG (400 UNIT) tablet TAKE 1 TABLET BY MOUTH EVERY MORNING 90 tablet 3 024 Active Continuous Glucose Engineering Technologist (FreeStyle Lex 2 Wells) deviceIndications :Type 2 diabetes mellitus with hyperlipidemia (CMS/HCC) ([facility]),Hypogly cemia Scan sensor every 4-6 hours 1 each Active Continuous Glucose Sensor (FreeStyle Lex 2 Sensor) miscIndications:T ype 2 diabetes mellitus with hyperlipidemia (CMS/HCC) ([facility]),Hypogly cemia Apply 1 sensor every 14 days 2 each Active glucose blood (FreeStyle Precision Lyle Test) test stripIndications: Type 2 diabetes mellitus with hyperlipidemia (CMS/HCC) ([facility]),Hypogly cemia Use to test blood sugar 3 times daily 100 each 12 024 2024 Active atorvastatin (Lipitor) 80 MG tablet TAKE 1 TABLET BY MOUTH AT BEDTIME 90 tablet 3 024 Active metFORMIN XR (Glucophage-XR) 750 MG 24 hr tabletIndications :Type 2 diabetes mellitus with hyperlipidemia (CMS/HCC) ([facility]) TAKE 1 TABLET BY MOUTH TWICE DAILY IN THE MORNING AND IN THE EVENING WITH MEALS 180 tablet 1 024 Active Aspirin Low Dose 81 MG EC tablet TAKE 1 TABLET BY MOUTH AT BEDTIME 90 tablet 3 024 Active insulin aspart, with niacinamide, (Fiasp FlexTouch) 100 UNIT/ML injectionIndicati ons:Type 2 diabetes mellitus with hyperlipidemia (CMS/HCC) ([facility]) Inject 8-14 units subcutaneously twice daily with largest meals of the day 12 mL 12 024 Active gabapentin (Neurontin) 300 MG capsuleIndication s:Diabetic polyneuropathy associated with type 2 diabetes mellitus ([facility]/HCC) TAKE 1 CAPSULE BY MOUTH AT BEDTIME (Y TOME 1 CAPSULA ADDICIONAL CARON VEZ JENNI EYELID FOR DIARRHEA CUANDO SEA NECESARIO) 60 capsule 1 024 Active Tresiba FlexTouch 100 UNIT/ML injectionIndicati ons:Type 2 diabetes mellitus with hyperlipidemia (CMS/HCC) ([facility]) INJECT 56 UNITS SUBCUTANEOUSLY ONCE DAILY EVERY MORNING 15 mL 11 024 Active omeprazole (PriLOSEC) [address] capsule TAKE 1 CAPSULE BY MOUTH EVERY MORNING 30 capsule 1 025 Active Umeclidinium-Lillian nterol (Anoro Ellipta) 62.5-25 MCG/ACT aerosol powderIndications :Moderate persistent asthma without complication INHALE 1 PUFF BY MOUTH EVERY DAY AT THE SAME TIME RINSE MOUTH AFTER USING 1 each 2 025 Active omeprazole (PriLOSEC) [address] capsule TAKE 1 CAPSULE BY MOUTH EVERY MORNING 90 capsule 1 024 2024 Discontinued Anoro Ellipta 62.5-25 MCG/ACT aerosol powderIndications :Moderate persistent asthma without complication INHALE 1 PUFF BY MOUTH EVERY DAY AT THE SAME TIME 60 each 2 024 2024 Discontinued Active Problems Problem Noted Date Diagnosed Date Tipped teeth 04/15/2024 Dental abscess 04/15/2024 Missing teeth, acquired 04/15/2024 Dental caries 04/15/2024 Smoking 10/09/2023 Open fracture of tooth 04/20/2023 Periodontal disease 12/25/2022 Dental calculus 12/25/2022 Essential hypertension 04/16/2018 Overweight (BMI 25.0-29.9) 04/16/2018 Foot callus 10/04/2012 Standard chest x-ray abnormal 09/25/2012 Asthma 08/28/2012 Drug-induced constipation 08/28/2012 Hemorrhoids 08/28/2012 Hyperlipidemia 08/28/2012 Left ventricular hypertrophy 08/28/2012 Non-cardiac chest pain 08/28/2012 Vitamin D deficiency 08/28/2012 Heartburn 02/29/2012 Cervical spondylosis with myelopathy 01/25/2012 Type 2 diabetes mellitus with hyperlipidemia (CM S/HCC) 01/25/2012 Overview (05/05/2024): Lab Results Component Value Date HGBA1C 7.7 (A) 04/18/2024 HGBA1C 7.4 (A) 01/15/2024 HGBA1C 7.1 (A) 05/08/2023 CGM - pt w/ multiple daily injections of insulin, significant hypoglycemia reported last visit. Need CGM for monitoring. Explained to pt that though A1c is close to goal, it is only an average so can mask if he is having extreme highs and lows. Asked him to please eat more regularly, never take insulin w/o eating. If working outside all day, snack often and hydrate well. RTC to have CGM teaching and placement. Cont metformin 750mg XR BID Novolog 10-15 units BID with largest meals Tresiba 56 units once daily On ASA, statin, not on AMAN or ARB Anxiety state 01/25/2012 Hypertension 01/25/2012 Encounters Date Type Department Care Team Description 08/30/2024 Refill [facility] [address] [place] [address] Vikas Casiano ANP Moderate persistent asthma without complication 08/11/2024 Telephone [facility] [address] [place] [address] Vikas Casiano ANP Prior Authorization ([employer] sensors); Paperwork/Forms 08/02/2024 Refill [facility] [address] [place] [phone] Vikas Casiano ANP Type 2 diabetes mellitus with hyperlipidemia ([facility]/HCC) ([facility]) 07/26/2024 Refill [facility] [address] [place] [phone] Vikas Casiano ANP Diabetic polyneuropathy associated with type 2 diabetes mellitus (CMS/HCC) 07/23/2024 Orders Only GENERIC EXTERNAL DATA DEPARTMENT Provider, Generic External Data 07/17/2024 Telephone [facility] [address] [place] [phone] Tatiana Kevin RN Medication Change 07/16/2024 Orders Only [facility] [address] [place] [phone] Vikas Casiano ANP Type 2 diabetes mellitus with hyperlipidemia (CMS/HCC) ([facility]) (Primary Dx) 07/15/2024 Telephone [facility] [address] [place] [phone] Demetrice Cuadra RNfood products sales representative (Novolog Flexpen) from Last 3 Months Immunizations Name Administration Dates Next Due Influenza, IIV3, injectable 07/13/1998 Nick SARS-CoV-2 Vaccination 10/27/2020 Pneumococcal Conjugate PCV 20 04/18/2024 Pneumococcal Polysaccharide PPSV23 08/29/2003 TD (adult), 2 Lf tetanus tox oid, preservative free, adsorbed 04/18/2024,06/28/1998 Tdap 04/15/2014 Zoster, Recombinant 08/03/2020 Social History Tobacco Use Types Packs/Day Years Used Date Smoking Tobacco: Every Day Cigarettes 0.3 0.5 Passive Smoke Exposure: Past Smokeless Tobacco: Current Tobacco Cessation:Ready to Q uit: Not Asked; Counseling Given: Not Answered Alcohol Use Standard Drinks/Week Comments Yes 0 (1 standard drink = 0.6 oz pur e alcohol) Depression Answer Date Recorded Patient Health Questionnaire-9 Score 1 04/18/2024 Patient Health Questionnaire-9 Score 1 04/18/2024 Last PHQ-9: Questionnaire Data Not on file 0 04/18/2024 Housing Stability Answer Date Recorded What is your housing situation today? I do not have housing (Staying with others, in a hotel, in a mcc, living outside on the street, on a beach, in a car, or in a park 10/26/[address] you li ve. Do you have problems with any of the following? I am not sure 10/26/2023 Food Insecurity Answer Date Recorded Within the past 12 months, y ou worried that your food would run out before you got money to buy more: Often true 10/26/2023 Within the past 12 months,th e food you bought just didn't last and you didn't have enough money to get more: Not on file Transportation Answer Date Recorded In the past 12 months, has l ack of transportation kept you from medical appts, meetings, work or from getting things needed for daily living? No 10/26/2023 Utilities Answer Date Recorded In the past 12 months, has t he electric, gas, oil or water company threatened to shut off services in your home? No 10/26/2023 Depression Answer Date Recorded Patient Health Questionnaire-2 Score 0 04/18/2024 Sex and Gender Information Value Date Recorded Sex Assigned at Male 06/12/2022 10:15 AM EDT Legal Sex Male 10:15 AM EDT Gender Identity Male 06/12/2022 10:15 AM EDT Sexual Orientation Choose not to disclose 2021 10:15 AM EDT Last Filed Vital Signs Vital Sign Reading Time Taken Comments Blood Pressure 120/68 04/18/2024 9:25 AM EDT Pulse 92 04/18/2024 9:25 AM EDT Temperature 36.4 ??C (97.5 ??F) 04/18/2024 9:25 AM ED T Respiratory Rate 18 04/18/2024 9:25 AM EDT Oxygen Saturation 99% 04/18/2024 9:25 AM EDT Inhaled Oxygen Concentration - - Weight 85.9 kg (189 lb 6.4 oz) 04/18/2024 9:25 A M EDT Height 175.3 cm (5' 9 ) 04/18/2024 9:25 AM EDT Body Mass Index 27.97 04/18/2024 9:25 AM EDT Plan of Treatment Upcoming Encounters Date Type Department Care Team (Late st Contact Info) Description 10/16/2024 10:00 AM EST Office Visit [facility] [address], [place] [phone] Chel, Barbara [address] [place] [address] Health Maintenance Due Date Last Done Comments CT Colonography 1960 FIT DNA/Cologuard 1960 FIT 1960 FOBT 1960 Sigmoidoscopy 1960 Alcohol/Substance Use Screening 1972 RSV Patients and Patients Aged 60 years or older (1 - Risk 60-74 years 1-dose series) 2020 Zoster Vaccines (2 of 2) 09/28/2020 08/03/2020 SDOH Screening 10/09/2023 10/09/2022 COVID-19 Vaccine (2 - season) 2024 10/27/2020 Influenza Vaccine (#1) 2024 07/13/1998 Diabetes: Foot Exam 05/08/2024 05/08/2023, Diabetes: Hemoglobin A1C 07/18/2024 024, 01/15/2024, 05/08/2023, Additional history exists Lipid Panel 08/24/2024 08/24/2023, 0810/2021, 07/22/2020 Dental Oral Exam 10/14/2024 04/15/2024, 09/20/2022 Dental Prophylaxis 10/14/2024 04/15/2024, 11/06/2022 Dental X-Ray: Bitewings 04/16/2025 04/15/2024, 09/20 Depression Screening 04/18/2025 04/18/2024, 04/18/20 24 Diabetes: Urine Protein Screening 04/18/2025 04/18/2024, 10/09/2022, 03/15/2022, Additional history exists Tobacco Screening 05/01/2025 05/01/2024 Dental X-Ray: Full Mouth 09/21/2025 09/20/2022 Eye Exam 05/01/2026 05/01/2024, 04/13, 05/01/2024, Additional history exists Colonoscopy 10/18/2032 10/18/2022 Colorectal Cancer Screening 10/18/2032 DTaP/Tdap/Td Vaccines (3 - Td or Tdap) 04/18/2034 04/18/2024, 04/15/2014, 06/28/1998 HIV Screening Completed 07/22/2020 Hepatitis C Screening Completed 07/22/2020 Pneumococcal Vaccine: 50+ Years Completed 04/18/2024, 08/29/2003 HIB Vaccines Aged Out No longer eligi ble based on patient's age to complete this topic HPV Vaccines Aged Out No longer eligi ble based on patient's age to complete this topic Hepatitis A Vaccines Aged Out No long er eligible based on patient's age to complete this topic Hepatitis B Vaccines Aged Out No long er eligible based on patient's age to complete this topic IPV Vaccines Aged Out No longer eligi ble based on patient's age to complete this topic Meningococcal Vaccine Aged Out No mely loni eligible based on patient's age to complete this topic RSV under 20 months Aged Out No longe r eligible based on patient's age to complete this topic Rotavirus Vaccines Aged Out No longer eligible based on patient's age to complete this topic Procedures Procedure Name Priority Date/Time Associated Diagnosis Comments HIGH SENSITIVITY TROPONIN I Routine 07/23/2024 4:41 PM EST HIGH SENSITIVITY TROPONIN I Routine 07/23/2024 11:53 AM EST MAGNESIUM Routine 07/23/2024 11:53 AM EST COMPREHENSIVE METABOLIC PANEL Routine 07/23/2024 11:53 AM EST CBC WITH AUTO DIFFERENTIAL Routine 07/23/2024 11:53 AM EST XR CHEST 1 VIEW Routine 07/23/2024 10:26 AM EST POCT GLYCATED HEMOGLOBIN, TOTAL Routine 04/18/2024 9:39 AM EDT Type 2 diabetes mellitus with hyperlipidemia (CMS/HCC) (CMS/HCC) ALBUMIN, RANDOM URINE W/CREATININE Routine 04/18/2024 12:00 AM EDT Full PROPHYLAXIS - ADULT Routine 04/15/2024 9:00 AM EDT Dental calculus BITEWINGS - 4 RADIOGRAPHIC IMAGES Routine 04/15/2024 9:00 AM EDT Tipped teeth Dental abscess Dental calculus Dental caries Missing teeth, acquired PERIODIC ORAL EVALUATION - ESTABLISHED PATIENT Routine 04/15/2024 9:00 AM EDT LIPID PANEL, STANDARD Routine 08/24/2023 10:19 AM EST Type 2 diabetes mellitus with hyperlipidemia (CMS/HCC) HM COLONOSCOPY Routine 10/18/2022 INTRAORAL - COMPLETE SERIES OF RADIOGRAPHIC IMAGES Routine 09/20/2022 11:00 AM EST ZZZ HISTORICAL HEPATITIS C AB W/REFL TO HCV RNA, QN, PCR Routine 07/22/2020 8:45 AM EST HIV 1/2 ANTIGEN/ANTIBODY, FOURTH GENERATION W/RFL Routine 07/22/2020 8:45 AM EST from Last 3 Months or Most Recently Relevant to Health Maintenance Results * High Sensitivity Troponin I (07/23/2024 4:41 PM EST) Only the most recent of2 resultswithin the time period is included. TROPONIN I HIGH SENSITIVITY 6.2 <3.5 - 35.0 ng/L [facility] Comment:The [place] high sens itivity Troponin-I results should beused in conjunction with other diagnostic information suchas ECG, clinical observations and information, and patientsymptoms to aid in the diagnosis of ME. 07/23/2024 4:41 PM EST 07/23/2024 4:48 PM EST us Generic External Data Provider LAB BLOOD ORDERAB LES Final Result [facility] [address] [place] [address] [phone] * CBC auto differential (07/23/2024 11:53 AM EST) White Blood Count 6.5 4.8 - 10.8 X10*3/uL [facility] Red Blood Count 4.64 4.60 - 5.80 X10*6/uL [facility] Hemoglobin 14.8 14.0 - 18.0 g/dl [facility] Hematocrit 43.0 42.0 - 52.0 % [facility] Mean Corpuscular Volume 92.7 80.0 - 98.0 fL [facility] Mean Corpuscular Hemoglobin 31.9 27.0 - 33.0 pg [facility] Mean Corpuscular HGB Conc 34.4 31.0 - 36.0 g/dl [facility] Red Cell Distribution Width 12.0 11.0 - 16.0 % [facility] Platelet Count 185 160 - 400 X10*3/uL [facility] Mean Platelet Volume 10.1 9.4 - 12.4 fL [facility] Neutrophils Percent Auto 56.0 45 - 73 % [facility] Imm Gran Pct Auto 0.3 0.0 - 0.4 % [facility] Lymphocytes Percent Auto 30.3 20 - 40 % [facility] Monocytes Percent Auto 10.1 2 - 11 % [facility] Eosinophils Percent Auto 2.8 0 - 4 % [facility] Basophils Percent Auto 0.5 0 - 2 % [facility] NRBC Pct Auto 0.0 0.0 - 0.2 /100WBC [facility] Neutrophils Absolute Auto 3.7 2.0 - 8.3 x10*3/uL [facility] Imm Gran Abs Auto 0.02 0.00 - 0.03 X10*3/uL [facility] Lymphocytes Absolute Auto 2.0 1.2 - 4.9 X10*3/uL [facility] Monocytes Absolute Auto 0.7 0.1 - 1.2 X10*3/uL [facility] Eosinophils Absolute Auto 0.2 0.0 - 0.4 X10*3/uL [facility] Basophils Absolute Auto 0.0 0.0 - 0.2 X10*3/uL [facility] NRBC Abs Auto 0.000 0.0 - 0.012 X10*3/uL [facility] 07/23/2024 11:5 3 AM EST 07/23/2024 11:55 AM EST Generic External Data Provider LAB BLOOD ORDERAB LES Final Result Performing Organization Address [facility] Co de Phone Number [facility] [address] [place] [phone] * Magnesium (07/23/2024 11:53 AM EST) Pathologist [facility] Magnesium 1.9 1.6 - 2.6 mg/dL [facility] 07/23/2024 11:5 3 AM EST 07/23/2024 11:55 AM EST Generic External Data Provider LAB BLOOD ORDERAB LES Final Result Performing Organization Address [facility] de Phone Number [facility] [address] [place] [phone] * (ABNORMAL) Comprehensive Metabolic Panel (07/23/2024 11:53 AM EST) Sodium 140 135 - 145 mmol/L [facility] Potassium 4.5 3.3 - 5.1 mmol/L [facility] Chloride 105 96 - 108 mmol/L [facility] Carbon Dioxide 30(H) 22 - 29 mmol/L [facility] Anion Gap 10(L) 12 - 20 [facility] Urea Nitrogen (BUN) 16 9 - 16 mg/dL [facility] Creatinine, Serum 0.82 0.5 - 1.4 mg/dL [facility] Creatinine Clr Calc Pharmacy 100.3 [facility] Comment:eGFR (calculated fro m the MDRD study equation) and eCrCl(calculated from the Cockcroft-Gault equation) are based ondifferent parameters and may not yield comparable results.If eCrCl result is absurd, please check patient'sheight/weight. Estimated Glomerular Filt Rate >60 [facility] Comment:Chronic Kidney Disea se: Estimated GFR < 60 mL/min/1.11p7Rnnaxh Kidney Disease: Estimated GFR < 15 mL/min/1.73m2 Glucose 261(H) 60 - 115 mg/dL [facility] Calcium 9.7 8.4 - 10.2 mg/dL [facility] Bilirubin, Total 0.5 0.0 - 1.0 mg/dL [facility] Aspartate Amino Transferase 30 5 - 37 U/L [facility] Alanine Aminotransferase 36 0 - 40 U/L [facility] Total Protein 7.0 6.5 - 8.0 g/dL [facility] Albumin Level 4.1 3.5 - 5.0 g/dL [facility] Alkaline Phosphatase 84 39 - 117 U/L [facility] 07/23/2024 11:5 3 AM EST 07/23/2024 11:55 AM EST us Generic External Data Provider LAB BLOOD ORDERAB LES Final Result Performing Organization Address City/State/[facility] Co de Phone Number [facility] [address] [place] [address] [phone] * XR Chest 1 View (07/23/2024 10:26 AM EST) Anatomical Region Laterality Modality Chest Radiographic Ainsley ging 07/23/2024 10:2 6 AM EST Narrative 07/23/2024 11:22 AM EST ? [facility] ?[address] ?[place] [address] ?XRay Report ? Signed ? Patient: Jose Raul,Agnori ?MR#: [id number] ? : 1960 ?Acct:[id number] ? Age/Sex: 64 / M ?ADM Date: 07/23/24 ? Loc: HO.ED ? Attending Dr: ? Ordering Physician: Generic ED Physician ?? Date of Service: 07/23/24 ?? Procedure(s): XR chest 1V ?? Accession Number(s): [id number] ? cc: Generic ED Physician; VIKAS CASIANO NP ? EXAMINATION: ?? XR CHEST ? CLINICAL INFORMATION: ?? chest pain ? COMPARISON: ?? CT lung screening dated 11/06/2023 ? TECHNIQUE: ?? Frontal view of the chest was obtained. ? FINDINGS: ?? Lungs are clear. Heart and pulmonary vessels normal. No congestive ?? change. ? Surgical changes are observed overlying the C-spine. ? XR/XR chest 1V ?? IMPRESSION: ?? No active disease. ? Electronically signed by: ??Frank Serrano MD ??07/23/2024 11:19 AM EST RP ? Dictated By: ?Frank Serrano MD ? Signed By: ?<Electronically signed by Frank Serrano MD in OV> ?07/23/24 1119 ? DD/ 1026 ? TD/TT: 07/23/24 1034 ? Continuing Education Director: ? Procedure Note Sushila Bahena - 07/23/2024 [place] [address] XRay Report Signed Patient: Jabari BluntMR#: [id number] : 1960Acct:[id number] Age/Sex: 64 / MADM Date: 07/23/24 Loc: HO.ED Attending Dr: Ordering Physician: Generic ED Physician Date of Service: 07/23/24 Procedure(s): XR chest 1V Accession Number(s): [id number] cc: Generic ED Physician; VIKAS CASIANO NP EXAMINATION: XR CHEST CLINICAL INFORMATION: chest pain COMPARISON: CT lung screening dated 11/06/2023 TECHNIQUE: Frontal view of the chest was obtained. FINDINGS: Lungs are clear. Heart and pulmonary vessels normal. No congestive change. Surgical changes are observed overlying the C-spine. XR/XR chest 1V IMPRESSION: No active disease. Electronically signed by: Frank Serrano MD 07/23/2024 11:19 AM EST Dictated By: Frank Serrano MD Signed By: <Electronically signed by Frank Serrano MD in OV> 07/23/24 1119 DD/ 1026 TD/TT: 07/23/24 1034 Continuing Education Director: [facility] External Provider IMG XR PROCEDURES Edited Result - Final * (ABNORMAL) POCT HGB A1C (04/18/2024 9:39 AM EDT) Hemoglobin A1C 7.7(A) 4.0 - 6.0 % QC Media Lot # [id number] Lot# Expiration Date Blood 04/18/2024 9:39 AM EDT Vikas Casiano ANP POINT OF CARE TEST ENTER/EDIT OR DERABLES Final Result * Albumin, Random Urine W/Creatinine (04/18/2024 12:00 AM EDT) Pathologist [facility] Creatinine, Urine 173.90 mg/dL [facility] Microalbumin Urine 23.0 mg/L [facility] Microalbum Creatinine Ratio Ur 13.2 <30 ug/mg cr [facility] Comment:Albumin/Creatinine R atio Reference Ranges: Normal: < 30 ug/mg creatinine Microalbuminuria: 30 - 300 ug/mg creatinineClinical Albuminuria: > 300 ug/mg creatinine 04/18/2024 04/18/2024 Vikas Casiano ANP LAB URINE ORDERABLES Final Resul t [facility] [address] [place] [address] [phone] * Lipid Panel, Standard (08/24/2023 10:19 AM EST) Pathologist [facility] Triglycerides 55 <150 mg/dL [facility] Comment:Desirable Triglyceri de: less than 150 mg/dLBorderline High Triglyceride 150-199 mg/dLHigh Triglyceride: 200-499 mg/dLVery High Triglyceride: greater than or equal to 5OO mg/dL Cholesterol 118 <200 mg/dL [facility] Comment:Desirable Cholestero l: less than 200 mg/dLBorderline High Cholesterol: 200-239 mg/dLHigh Cholesterol: greater than 239 mg/dL LDL Cholesterol Calculated 52 <100 mg/dL [facility] Comment:Desirable LDL: less than 100 mg/dLNear Optimal/Above Optimal LDL: 110- 129 mg/dLBorderline High LDL: 130-159 mg/dLHigh LDL: 160-189 mg/dLVery High LDL: greater than or equal to 190 mg/dL HDL Cholesterol 55 >40 mg/dL [facility] Comment:Desirable HDL: great er than 40 mg/dL Note: This HDL assay may give artificially low results in patients with liver disease. Blood Venous blood specimen / Unknown 08/24/2023 10:19 AM EST 08/24/2023 11:52 AM EST [facility] LAB BLOOD ORDERABLES Final Resul t [facility] [address] [place] [phone] * Colonoscopy (10/18/2022) [facility] Colonoscopy Normal Normal Historical Provider HEALTH MAINTENANCE Final Result * HEPATITIS C AB W/REFL TO HCV RNA, QN, PCR (07/22/2020 8:45 AM EST) [facility] HEPATITIS C ANTIBODY NON-REACT MARIYA NON-REACT MARIYA [facility] INDEX 0.01 <1.00 [facility] Comment: ?? HCV antibody was non-reactive. There is no laboratory ?? evidence of HCV infection. ?? In most cases, no further action is required. However, if recent HCV exposure is suspected, a test for HCV RNA (test code 47730) is suggested. ?? For additional information please refer to http://[employer]/faq/XIX51w2 (This link is being provided for informational/ educational purposes only.) ?? 07/22/2020 8:45 AM EST Vikas Casiano ANP HISTORICAL/NON ORDERABLE LABS Fi nal Result Performing Organization Address [facility] de Phone Number [facility] [address] * HIV 1/2 ANTIGEN/ANTIBODY,FOURTH GENERATION W/RFL (07/22/2020 8:45 AM EST) HIV-1/2 ANTIGEN AND ANTIBODIES, 4TH GENERATION W/ REFLEX NON-REACT MARIYA NON-REACT MARIYA [facility] Comment: HIV-1 antigen and HIV-1/HIV-2 antibodies were not detected. There is no laboratory evidence of HIV infection. ?? PLEASE NOTE: This information has been disclosed to you from records whose confidentiality may be protected by state law. ??If your state requires such protection, then the state law prohibits you from making any further disclosure of the information without the specific written consent of the person to whom it pertains, or as otherwise permitted by law. A general authorization for the release of medical or other information is NOT sufficient for this purpose. ? For additional information please refer to [email or web address] (This link is being provided for informational/ educational purposes only.) ? The performance of this assay has not been clinically validated in patients less than 2 years old. ?? 07/22/2020 8:45 AM EST Vikas BROWNING LAB BLOOD ORDERABLES Final Resul t Performing Organization Address [facility] de Phone Number [facility] [address] from Last 3 Months or Most Recently Relevant to Health Maintenance Insurance [place] [id number] [facility] MEDICAID STAND ADULT Care Teams E Tailer Relationship Specialty Start Date End Date Vikas Casiano ANP [address] [place] [address] PCP - General Family Medicine 06/28/20
--- OUTSIDE RECORDS SUMMARY | 2024-09-30 15:52 | XMS_ITS | Encounter Summary ---
Author Organization [facility] Address [address] [facility] [address] [facility] [place] [address] Care Team Providers Care Device Sales Consultant Name Role Phone Summer Ball Primary Care Provider [phone] Encounter Details Date Type Department Care Team (Latest Contact Info) Description 04/28/2019 Abstract [facility] CONVERSIONS Dental, Provider, DDS Social History Tobacco Use Types Packs/Day Years Used Date Smoking Tobacco: Never Assessed Sex and Gender Information Value Date Recorded Sex Assigned at Male 06/12/2022 10:15 AM EDT Legal Sex Male 10:15 AM EDT Gender Identity Male 06/12/2022 10:15 AM EDT Sexual Orientation Choose not to disclose 2021 10:15 AM EDT documented as of this encounter Plan of Treatment Upcoming Encounters Date Type Department Care Team (Late st Contact Info) Description 10/16/2024 10:00 AM EST Office Visit [facility] ADULT DENTAL [address] [place] [address] Chel Barbara [address] [place] [address] documented as of this encounter Visit Diagnoses Not on filedocumented in this encounter Care Teams Device Sales Consultant Relationship Specialty Start Date End Date Summer Ball ANP [address] [place] [address] PCP - General Family Medicine 06/28/20 documented as of this encounter
--- OUTSIDE RECORDS SUMMARY | 2024-09-30 15:52 | XMS_ITS | Encounter Summary ---
Author Organization [employer] Address [address] [facility] [address] [facility] [address] [place] [address] Care Team Providers Care Director Of Special Services Name Role Phone Summer Ball Primary Care Provider Reason for Visit * Reason Comments Med Refill Encounter Details Date Type Department Care Team ([facility] st Contact Info) Description 08/30/2024 Refill [facility] [address] [place], [place] [phone] Summer Ball ANP [address] [place], [place] [phone] Moderate persistent asthma without complication Social History Tobacco Use Types Packs/Day Years Used Date Smoking Tobacco: Every Day Cigarettes 0.3 0.5 Passive Smoke Exposure: Past Smokeless Tobacco: Current Alcohol Use Standard Drinks/Week Comments Yes 0 [...] with others, in a hotel, in a [place], living outside on the street, on a [...] Description 10/16/2024 10:00 AM EST Office Visit [facility] ADULT DENTAL [address] [place] [address] Chel, Barbara [address] [place] [address] documented as of this encounter Visit Diagnoses Diagnosis Moderate persistent asthma without complication documented in this encounter Additional Health Concerns Assessment Noted Time PHQ-9 Depression Total Score: 1 04/18/20 24 9:48 AM EDT documented as of this encounter Care Teams Director Of Special Services Relationship Specialty Start Date End Date Summer Ball ANP [address] [place] [address] PCP - General Family Medicine 06/28/20 documented as of this encounter
--- OUTSIDE RECORDS SUMMARY | 2024-09-30 15:52 | XMS_ITS | Encounter Summary ---
Author Organization [facility] Address [address] [place] [address] Care Team Providers Care Leather Staker Name Role Phone Summer Ball Primary Care Provider [phone] Encounter Details Date Type Department Care Team (Late st Contact Info) Description 12/15/2022 Abstract [facility] ADULT DENTAL [address] [place] [address] Truman Milliganaris [address] [place] [address] Social History Tobacco Use Types Packs/Day Years Used Date Smoking Tobacco: Every Day Cigarettes 0.3 0.5 Passive Smoke Exposure: Past Smokeless Tobacco: Current Alcohol Use Standard Drinks/Week Comments Not Currently 0 (1 standard drink = 0.6 oz pur e alcohol) Depression Answer Date Recorded Patient Health Questionnaire-2 Score 0 10/09/2022 Sex and Gender Information Value Date Recorded Sex Assigned at Male 06/12/2022 10:15 AM EDT Legal Sex Male 10:15 AM EDT Gender Identity Male 06/12/2022 10:15 AM EDT Sexual Orientation Choose not to disclose 2021 10:15 AM EDT COVID-19 Exposure Response Date Recorded In the last 10 days, have yo u been in contact with someone who was confirmed or suspected to have Coronavirus/COVID-19? No / Unsure 12/14/2022 8:59 AM EDT documented as of this encounter Plan of Treatment Upcoming Encounters Date Type Department Care Team (Late st Contact Info) Description 10/16/2024 10:00 AM EST Office Visit [facility] ADULT DENTAL [address] [place] [address] Barbara Milligan [address] [place] [address] documented as of this encounter Visit Diagnoses Not on filedocumented in this encounter Care Teams Leather Staker Relationship Specialty Start Date End Date Summer Ball ANP [address] [place] [address] PCP - General Family Medicine 06/28/20 documented as of this encounter
== END ==
LOC: HO.CARD 14:53
PROVIDERS: PCP Nurse Practitioner Primary Care; Visit Provider Internal Medicine Cardiovascular Disease
DX: I25.10 Atherosclerotic heart disease of native coronary artery without angina pectoris (principal)
CPT/HCPCS: 93306

== ENCOUNTER → 2024-09-30 15:03 | Outpatient (BNV) | payer MEDICARE, MEDICAID, SELFPAY | PROVIDERS: PCP Nurse Practitioner Primary Care; Visit Provider Internal Medicine | DX: I25.10 Atherosclerotic heart disease of native coronary artery without angina pectoris (principal) | CPT/HCPCS: 93306 ==

== ENCOUNTER 2025-01-27 10:49 | Outpatient (REF) | payer MEDICARE, MEDICAID, SELFPAY ==
--- OUTSIDE RECORDS SUMMARY | 2025-01-27 12:20 | XMS_ITS | Clinical Summary ---
Author Organization [employer] Address [address] [facility] 7t [place] [address] Care Team Providers Care Director Child Name Role Phone Summer Ball Primary Care Provider Allergies No known active allergies Medications albuterol 108 (90 Base) MCG/ACT inhaler Inhale 2 puffs every 4 (four) hours if needed. 020 Active betamethasone, augmented, (Diprolene AF) 0.05 % creamIndications :Rash of foot Apply twice daily to Left foot 50 g 023 Active acetaminophen (Tylenol Extra Strength) 500 MG tabletIndication s:Low back pain radiating to left leg Take 1-2 tabs as needed up to TID for pain 60 tablet 023 Active diclofenac (Voltaren) 50 MG EC tabletIndication s:Back Pain Do not crush, chew, or split. 14 tablet 023 Active cyclobenzaprine (Flexeril) 5 MG tabletIndication s:Low back pain radiating to left leg 1-2 tabs as needed for muscle spasm up to TID for up to 10d 30 tablet 023 Active Continuous Glucose Cable Television Access Coordinator (FreeStyle Lex 2 [place]) deviceIndication s:Type 2 diabetes mellitus with hyperlipidemia (CMS/HCC) (CMS/[facility]),Hypogl ycemia Scan sensor every 4-6 hours 1 each 024 Active Continuous Glucose Sensor (FreeStyle Lex 2 Sensor) miscIndications: Type 2 diabetes mellitus with hyperlipidemia (CMS/HCC) (CMS/HCC),Hypogl ycemia Apply 1 sensor every 14 days 2 each 024 Active atorvastatin (Lipitor) 80 MG tablet TAKE 1 TABLET BY MOUTH AT BEDTIME 90 tablet 3 024 Active Aspirin Low Dose 81 MG EC tablet TAKE 1 TABLET BY MOUTH AT BEDTIME 90 tablet 3 024 Active Tresiba FlexTouch 100 UNIT/ML injectionIndicat ions:Type 2 diabetes mellitus with hyperlipidemia (CMS/HCC) ([facility]) INJECT 56 UNITS SUBCUTANEOUSLY ONCE DAILY EVERY MORNING 15 mL 11 024 Active gabapentin (Neurontin) 300 MG capsuleIndicatio ns:Diabetic polyneuropathy associated with type 2 diabetes mellitus (CMS/HCC) TAKE 1 CAPSULE BY MOUTH AT BEDTIME (Y TOME 1 CAPSULA ADDICIONAL CARON VEZ JENNI EYELID FOR DIARRHEA CUANDO SEA NECESARIO) 60 capsule 1 025 Active Anoro Ellipta 62.5-25 MCG/ACT aerosol powderIndication s:Moderate persistent asthma without complication INHALE 1 PUFF BY MOUTH EVERY DAY AT THE SAME TIME RINSE MOUTH AFTER USING 60 each 2 025 Active omeprazole (PriLOSEC) [address] capsule TAKE 1 CAPSULE BY MOUTH EVERY MORNING 30 capsule 1 025 Active FREESTYLE LITE test stripIndications :Type 2 diabetes mellitus with hyperlipidemia (CMS/HCC) ([facility]),Hypogl ycemia TEST BLOOD SUGAR 3 TIMES A DAY 100 strip 025 Active BD Pen Needle Mere Ultrafine 32G X 4 MM miscIndications: Type 2 diabetes mellitus treated with insulin ([facility]) USE THREE TIMES DAILY DIRECTED 100 each 6 025 Active insulin aspart FlexPen (NovoLOG) 100 UNIT/ML penIndications:T ype 2 diabetes mellitus with hyperlipidemia (CMS/HCC) ([facility]) Inject 8-14 units subcutaneously twice daily with largest meals of the day 15 mL 2 025 Active cholecalciferol (Vitamin D-3) 10 MCG (400 UNIT) tablet TAKE 1 TABLET BY MOUTH EVERY MORNING 90 tablet 3 025 Active TRUEplus Lancets 33G miscIndications: Type 2 diabetes mellitus with hyperlipidemia (CMS/HCC) ([facility]) Use to test BG 3 times daily 100 each 025 Active Dulaglutide (Trulicity) 0.75 MG/0.5ML solution auto-injectorInd ications:Type 2 diabetes mellitus with hyperlipidemia (CMS/HCC) ([facility]) Inject 0.75 mg under the skin 1 (one) time per week. 2 mL 025 Active nicotine polacrilex (Nicorette) 2 MG gumIndications:C igarette nicotine dependence without complication Chew 1 each (2 mg) if needed for smoking cessation. Every 1-2 hrs as needed in place of cigarette 100 each 11 025 2024 Active nicotine (Nicoderm CQ) 14 MG/24HR patchIndications :Cigarette nicotine dependence without complication Place 1 patch on the skin 1 (one) time each day at the same time. 42 patch 025 2024 Active nicotine (Nicoderm CQ) 7 MG/24HR patchIndications :Cigarette nicotine dependence without complication Place 1 patch on the skin 1 (one) time each day at the same time for 28 days. Do not start before February 24, 2025. 14 patch 1 025 2024 Active TRUEplus Lancets 33G misc TEST BLOOD SUGAR 3 TIMES A DAY 022 2024 Discontinued(R eorder (will not trigger notification to Pharmacy)) Pentips 32G X 4 MM miscIndications: Type 2 diabetes mellitus treated with insulin ([facility]) Use as directed three times daily 100 each 11 024 2024 Discontinued cholecalciferol 10 MCG (400 UNIT) tablet TAKE 1 TABLET BY MOUTH EVERY MORNING 90 tablet 3 024 2024 Discontinued insulin aspart, with niacinamide, (Fiasp FlexTouch) 100 UNIT/ML injectionIndicat ions:Type 2 diabetes mellitus with hyperlipidemia (CMS/HCC) ([facility]) Inject 8-14 units subcutaneously twice daily with largest meals of the day 12 mL 12 024 2024 Discontinued(F ormulary change) metFORMIN XR (Glucophage-XR) 750 MG 24 hr tabletIndication s:Type 2 diabetes mellitus with hyperlipidemia (CMS/HCC) ([facility]) TAKE 1 TABLET BY MOUTH TWICE DAILY IN THE MORNING AND IN THE EVENING WITH MEALS 180 tablet 1 025 2024 Discontinued(S maribel effects) glucose blood (FreeStyle Precision Lyle Test) test stripIndications :Type 2 diabetes mellitus with hyperlipidemia (CMS/[facility]) ([facility]),Hypogl ycemia Use to test blood sugar 3 times daily 100 each 12 025 2024 Discontinued Active Problems Problem Noted Date Diagnosed Date Tipped teeth 04/15/2024 Dental abscess 04/15/2024 Missing teeth, acquired 04/15/2024 Dental caries 04/15/2024 Cigarette nicotine dependence without complicati on 10/09/2023 Open fracture of tooth 04/20/2023 Periodontal disease 12/25/2022 Dental calculus 12/25/2022 Essential hypertension 04/16/2018 Overweight (BMI 25.0-29.9) 04/16/2018 Foot callus 10/04/2012 Standard chest x-ray abnormal 09/25/2012 Asthma 08/28/2012 Drug-induced constipation 08/28/2012 Hemorrhoids 08/28/2012 Hyperlipidemia 08/28/2012 Left ventricular hypertrophy 08/28/2012 Non-cardiac chest pain 08/28/2012 Vitamin D deficiency 08/28/2012 Heartburn 02/29/2012 Cervical spondylosis with myelopathy 01/25/2012 Type 2 diabetes mellitus with hyperlipidemia ( S/HCC) 01/25/2012 Overview (05/05/2024): Lab Results Component [...] Encounters Date Type Department Care Team Description 01/27/2025 9:45 AM EDT Office Visit [facility] [place] [address] Summer Ball ANP Type 2 diabetes mellitus with hyperlipidemia (CMS/HCC) ([facility]) (Primary Dx); Essential hypertension; Moderate persistent asthma without complication; Cigarette nicotine dependence without complication; Hypomagnesemia 01/27/2025 Travel 01/26/2025 Telephone [facility] [place] [address] Jonel Bishop MA Chart Prep 01/20/2025 Telephone [facility] [address] [place] [address] Michelle Blunt RN Paperwork/Forms 01/20/2025 Orders Only [facility] [address] [place] [address] Summer Ball ANP Type 2 diabetes mellitus with hyperlipidemia (CMS/HCC) ([facility]) (Primary Dx) 01/14/2025 Refill [facility] [place] [address] Summer Ball ANP 01/13/2025 Orders Only [facility] [address] [place] [address] Summer Ball ANP Type 2 diabetes mellitus with hyperlipidemia (CMS/HCC) ([facility]) (Primary Dx) 01/13/2025 Telephone [facility] [place] [address] Summer Ball ANP 01/09/2025 Refill [facility] [place] [address] Summer Ball ANP Type 2 diabetes mellitus treated with insulin (CMS/HCC) 01/06/2025 Refill [facility] [address] [place] [address] Summer Ball ANP Type 2 diabetes mellitus with hyperlipidemia (CMS/HCC) (CMS/[facility]); Hypoglycemia 12/21/2024 Refill [facility] [address] [place] [address] Summer Ball ANP Moderate persistent asthma without complication 12/16/2024 Orders Only [facility] [address] [place] [address] Summer Ball ANP Type 2 diabetes mellitus with hyperlipidemia (CMS/HCC) ([facility]); Hypoglycemia 12/08/2024 Refill [facility] [address] [place] [address] Summer Ball ANP Diabetic polyneuropathy associated with type 2 diabetes mellitus ([facility]) 10/29/2024 Refill [facility] [address] [facility] [address] Summer Ball ANP Type 2 diabetes mellitus with hyperlipidemia ([facility]) ([facility]) from Last 3 Months Immunizations Immunization Administration Dates Next Due Influenza, IIV3, injectable [...] Answer Date Recorded Patient Health Questionnaire-9 Score 0 01/27/2025 Patient Health Questionnaire-9 Score 0 01/27/2025 Last PHQ-9: Questionnaire Data Not on file 0 01/27/2025 Housing Stability Answer Date Recorded What is your housing situation today? I have alejandro valladares 01/27/[address] you li ve. Do you have problems with any of the following? None of the above 01/27/2025 Food Insecurity Answer Date Recorded Within the past 12 months, y ou worried that your food would run out before you got money to buy more: Never True 01/27/2025 Within the past 12 months,th e food you bought just didn't last and you didn't have enough money to get more: Never True Transportation Answer Date Recorded In the past 12 months, has l ack of transportation kept you from medical appts, meetings, work or from getting things needed for daily living? No 01/27/2025 Utilities Answer Date Recorded In the past 12 months, has t he electric, gas, oil or water company threatened to shut off services in your home? No 01/27/2025 Depression Answer Date Recorded Patient Health Questionnaire-2 Score 0 01/27/2025 Internet Access Answer Date Recorded Internet Access Q1 Yes 01/27/2025 Internet Access Q2 Not on file 01/27/2025 Sex and Gender Information Value Date Recorded Sex Assigned at Male 06/12/2022 10:15 AM EDT Legal Sex Male 10:15 AM EDT Gender Identity Male 06/12/2022 10:15 AM EDT Sexual Orientation Choose not to disclose 2021 10:15 AM EDT Last Filed Vital Signs Vital Sign Reading Time Taken Comments Blood Pressure 150/80 01/27/2025 10:07 AM EDT Pulse 96 01/27/2025 10:07 AM EDT Temperature 36.4 ??C (97.5 ??F) 04/18/2024 9:25 AM ED T Respiratory Rate 20 01/27/2025 10:0 7 AM EDT Oxygen Saturation 99% 04/18/2024 9:25 AM EDT Inhaled Oxygen Concentration - - Weight 86.1 kg (189 lb 12.8 oz) 025 10:07 AM EDT Height 175.3 cm (5' 9 ) 01/27/2025 10:0 7 AM EDT Body Mass Index 28.03 01/27/2025 10:07 AM EDT Plan of Treatment Upcoming Encounters Date Type Department Care Team (Late st Contact Info) Description 04/23/2025 11:00 AM EDT Office Visit [facility] [address] [place] [address] Summer Ball, NALLELY [address] [place] [address] Health Maintenance Due Date Last Done Comments CT Colonography 1960 FIT DNA/Cologuard 1960 FIT 1960 FOBT 1960 Sigmoidoscopy 1960 Alcohol/Substance Use Screening 1972 RSV Patients and Patients Aged 60 years or older (1 - Risk 60-74 years 1-dose series) 2020 Zoster Vaccines (2 of 2) 09/28/2020 08/03/2020 COVID-19 Vaccine (2 season) 2024 10/27/2020 Diabetes: Foot Exam 05/08/2024 05/08/2023, Lipid Panel 08/24/2024 08/24/2023, 08/0 10/2021, 07/22/2020 Dental Oral Exam 10/14/2024 04/15/2024, 09/20/2022 Influenza Vaccine (Season Ended) 2025 07/13/1998 Dental X-Ray: Bitewings 04/16/2025 04/15/2024, 09/20 Diabetes: Urine Protein Screening 04/18/2025 04/18/2024, 10/09/2022, 03/15/2022, Additional history exists Dental Prophylaxis 04/19/2025 10/16/2024, 0 04/15/2024, 11/06/2022 Diabetes: Hemoglobin A1C 04/29/2025 025, 04/18/2024, 01/15/2024, Additional history exists Dental X-Ray: Full Mouth 09/21/2025 09/20/2022 Depression Screening 01/27/2026 01/27/2025, 01/28/20 25 Disability Screening 01/27/2026 01/27/2025 SDOH Screening 01/27/2026 01/27/2025 Tobacco Screening 01/27/2026 01/27/2025 Eye Exam 05/01/2026 05/01/2024, 04/13, 05/01/2024, Additional [...] patient's age to complete this topic Meningococcal B Vaccine Aged Out No l onger eligible based on patient's age to complete [...] Procedure Name Priority Date/Time Associated Diagnosis Comments POCT GLYCATED HEMOGLOBIN, TOTAL Routine 01/27/2025 10:13 AM EDT Type 2 diabetes mellitus with hyperlipidemia (CMS/HCC) (CMS/HCC) POCT GLUCOSE Routine 01/27/2025 10:10 AM EDT Type 2 diabetes mellitus with hyperlipidemia (CMS/HCC) (CMS/[facility]) PROPHYLAXIS - ADULT Routine 10/16/2024 1 0:00 AM EST Dental calculus ALBUMIN, RANDOM URINE W/CREATININE Routine 04/18/2024 12:00 AM EDT BITEWINGS - 4 RADIOGRAPHIC IMAGES Routine 04/15/2024 [...] Recently Relevant to Health Maintenance Results * (ABNORMAL) POCT HGB A1C (01/27/2025 10:13 AM EDT) Hemoglobin A1C 8.3(A) 4.0 - 6.0 % QC Media Lot # [id number] Lot# Expiration Date Blood 01/27/2025 10:1 3 AM EDT us Summer Ball ANP POINT OF CARE TEST ENTER/EDIT OR DERABLES Final Result * POCT Glucose (01/27/2025 10:10 AM EDT) Pathologist [facility] Glucose Blood, POC 200 60 - 200 mg/dL QC Media Lot # [id number] Lot# Expiration Date Blood Capillary blood specimen / Unknown 01/27/2025 10:10 AM EDT us Summer Ball ANP POINT OF CARE TEST ENTER/EDIT OR DERABLES Final Result * Albumin, Random Urine W/Creatinine (04/18/2024 12:00 AM EDT) Pathologist [facility] Creatinine, Urine 173.90 mg/dL [facility] Microalbumin Urine 23.0 mg/L [facility] Microalbum Creatinine Ratio Ur 13.2 <30 ug/mg cr [facility] Comment:Albumin/Creatinine R atio Reference Ranges: Normal: < 30 ug/mg creatinine Microalbuminuria: 30 - 300 ug/mg creatinineClinical Albuminuria: > 300 ug/mg creatinine 04/18/2024 04/18/2024 us Summer Ball ANP LAB URINE ORDERABLES Final Resul t [facility] [address] [place] [phone] * Lipid Panel, Standard (08/24/2023 10:19 AM EST) Pathologist [facility] Triglycerides 55 <150 mg/dL [facility] Comment:Desirable Triglyceri de: less than 150 mg/dLBorderline High Triglyceride 150-199 mg/dLHigh Triglyceride: 200-499 mg/dLVery High Triglyceride: greater than or equal to 5OO mg/dL Cholesterol 118 <200 mg/dL [facility] Comment:Desirable Cholestero l: less than 200 mg/dLBorderline High Cholesterol: 200-239 mg/dLHigh Cholesterol: greater than 239 mg/dL LDL Cholesterol Calculated 52 <100 mg/dL [facility] Comment:Desirable LDL: less than 100 mg/dLNear Optimal/Above Optimal LDL: 110- 129 mg/dLBorderline High LDL: 130-159 mg/dLHigh LDL: 160-189 mg/dLVery High LDL: greater than or equal to 190 mg/dL HDL Cholesterol 55 >40 mg/dL [facility] Comment:Desirable HDL: great er than 40 mg/dL Note: This HDL assay may give artificially low results in patients with liver disease. Blood Venous blood specimen / Unknown 08/24/2023 10:19 AM EST 08/24/2023 11:52 AM EST [facility] LAB BLOOD ORDERABLES Final Resul t [facility] [address] [place] [address] [phone] * Colonoscopy (10/18/2022) [facility] Colonoscopy Normal Normal Historical Provider HEALTH MAINTENANCE Final Result * HEPATITIS C AB W/REFL TO HCV RNA, QN, PCR (07/22/2020 8:45 AM EST) [facility] HEPATITIS C ANTIBODY NON-REACT MARIYA NON-REACT [facility] INDEX 0.01 <1.00 [facility] Comment: ?? HCV antibody was non-reactive. There is no laboratory ?? evidence of HCV infection. ?? In most cases, no further action is required. However, if recent HCV exposure is suspected, a test for HCV RNA (test code 91781) is suggested. ?? For additional information please refer to [email or web address]/[email or web address] (This link is being provided for informational/ educational purposes only.) ?? 07/22/2020 8:45 AM EST Summer Ball ANP HISTORICAL/NON ORDERABLE LABS Fi nal Result Performing Organization Address [facility] de Phone Number [facility] [address] * HIV 1/2 ANTIGEN/ANTIBODY,FOURTH GENERATION W/RFL (07/22/2020 8:45 AM EST) HIV-1/2 ANTIGEN AND ANTIBODIES, 4TH GENERATION W/ REFLEX NON-REACT MARIYA NON-REACT MARIYA [facility] Comment: HIV-1 antigen and HIV-1/HIV-2 [...] ? For additional information please refer to [email or web address]/EKJ232 (This link is being provided for informational/ educational purposes only.) ? The performance of this assay has not been clinically validated in patients less than 2 years old. ?? 07/22/2020 8:45 AM EST Summer Ball ANP LAB BLOOD ORDERABLES Final Resul t Performing Organization Address [facility] Phone Number [facility] [address] from Last 3 Months or Most Recently Relevant to Health Maintenance Insurance MEDICARE [facility] MEDICAID STAND ADULT Care Teams Director Child Relationship Specialty Start Date End Date Summer Ball ANP [address] [place] [address] PCP - General Family Medicine 06/28/20
[2025-01-27 12:30] LABS: Cholesterol 159 mg/dL (<200); Creatinine Urine 138.71 mg/dL; HDL Cholesterol 61 mg/dL (>40); LDL Cholesterol Calculated 85 mg/dL (<100); Magnesium 2.1 mg/dL (1.6-2.6); Triglycerides 68 mg/dL (<150)
[2025-01-27 12:51] LABS: Vitamin B12 292 pg/mL (200-900)
== END 2025-01-27 10:50 | disposition home or self-care (01) ==
LOC: HO.HHCL 10:49
PROVIDERS: PCP Nurse Practitioner Primary Care; Visit Provider Nurse Practitioner Primary Care
DX: E83.42 Hypomagnesemia (principal); E78.5 Hyperlipidemia, unspecified; E11.69 Type 2 diabetes mellitus with other specified complication
CPT/HCPCS: 36415; 80061; 82043; 82570; 82607; 83735

== ENCOUNTER 2025-02-16 15:18 | Outpatient (REF) | payer MEDICARE, MEDICAID, SELFPAY ==
--- NOTE | ~2025-02-16 | XR_ITS ---
EXAMINATION: XR HAND, RIGHT CLINICAL INFORMATION: right little finger injury COMPARISON: None available. TECHNIQUE: PA, lateral, and oblique views of the hand and PA and lateral views of the fifth digit views of the right hand. FINDINGS: Punctate midthigh foreign body is present in the soft tissues dorsal to the middle phalanx of the fifth digit. There is a fracture through the tuft of the fifth digit. No other abnormalities are evident XR/XR hand RT min 3V IMPRESSION: Acute fracture of the fifth digit. Metallic foreign body in the soft tissues dorsal to the fifth middle phalanx Electronically signed by: Aubrey Evans MD 02/16/2025 04:04 PM EDT
--- OUTSIDE RECORDS SUMMARY | 2025-02-16 15:39 | XMS_ITS | Clinical Summary ---
Author Organization [employer] Address [address] [facility] [address] [place] [address] Care Team Providers Care Email Developer Name Role Phone Summer Ball Primary Care Provider [phone] Allergies No known active allergies Medications albuterol [...] 10d 30 tablet 023 Active Continuous Glucose Web Production Assistant (FreeStyle Lex 2 [place]) deviceIndication s:Type 2 diabetes mellitus with hyperlipidemia (CMS/HCC) ([facility]),Hypogl ycemia Scan sensor every 4-6 [...] ions:Type 2 diabetes mellitus with hyperlipidemia (CMS/HCC) ([facility]) INJECT 56 UNITS SUBCUTANEOUSLY ONCE DAILY EVERY MORNING 15 mL 11 024 Active Anoro Ellipta 62.5-25 MCG/ACT aerosol powderIndication s:Moderate persistent asthma without complication INHALE 1 PUFF BY MOUTH EVERY DAY AT THE SAME TIME RINSE MOUTH AFTER USING 60 each 2 025 Active omeprazole (PriLOSEC) [address] capsule TAKE 1 CAPSULE BY MOUTH EVERY MORNING 30 capsule 1 025 Active FREESTYLE LITE test stripIndications :Type 2 diabetes mellitus with hyperlipidemia ([facility]/HCC) ([facility]),Hypogl ycemia TEST BLOOD SUGAR 3 TIMES A DAY 100 strip 11 025 Active BD Pen Needle Mere Ultrafine 32G X 4 MM miscIndications: Type 2 diabetes mellitus treated with insulin ([facility]) USE THREE TIMES DAILY DIRECTED 100 each 6 025 Active insulin aspart FlexPen (NovoLOG) 100 UNIT/ML penIndications:T ype 2 diabetes mellitus with hyperlipidemia ([facility]/HCC) ([facility]) Inject 8-14 units subcutaneously twice daily with largest meals of the day 15 mL 2 025 Active cholecalciferol (Vitamin D-3) 10 MCG (400 UNIT) tablet TAKE 1 TABLET BY MOUTH EVERY MORNING 90 tablet 3 025 Active TRUEplus Lancets 33G miscIndications: Type 2 diabetes mellitus with hyperlipidemia ([facility]/HCC) ([facility]) Use to test BG 3 times daily 100 each 11 025 Active Dulaglutide (Trulicity) 0.75 MG/0.5ML solution auto-injectorInd ications:Type 2 diabetes mellitus with hyperlipidemia (CMS/HCC) ([facility]) Inject 0.75 mg under the [...] 2025. 14 patch 1 025 2024 Active cyanocobalamin (Vitamin B-12) 1000 MCG/ML injectionIndicat ions:Low serum vitamin B12,Numbness in feet Inject 1 mL (1,000 mcg) into the muscle every 7 (seven) days. 4 mL 025 Active gabapentin (Neurontin) 300 MG capsuleIndicatio ns:Diabetic polyneuropathy associated with type 2 diabetes mellitus (CMS/HCC) TAKE 1 CAPSULE BY MOUTH AT BEDTIME (Y TOME 1 CAPSULA ADDICIONAL CARON VEZ JENNI EL LIV CUANDO SEA NECESARIO) 60 capsule 1 025 Active amoxicillin-clav ulanate (Augmentin) 875-125 MG tabletIndication s:Crushing injury of right little finger, initial encounter Take 1 tablet by mouth 2 times daily for 2 days. 4 tablet 025 2024 Active TRUEplus [facility]ets [facility] B[facility] SUGAR 3 TIMES A DAY 022 2024 Discontinued(R eorder (will not trigger notification to Pharmacy)) metFORMIN XR (Glucophage-XR) 750 MG 24 hr tabletIndication s:Type 2 diabetes mellitus with hyperlipidemia (CMS/HCC) (CMS/HCC) TAKE 1 TABLET BY MOUTH TWICE DAILY IN THE MORNING AND IN THE EVENING WITH MEALS 180 tablet 1 025 2024 Discontinued(S maribel effects) gabapentin (Neurontin) 300 MG capsuleIndicatio ns:Diabetic polyneuropathy associated with type 2 diabetes mellitus (CMS/HCC) TAKE 1 CAPSULE BY MOUTH AT BEDTIME (Y TOME 1 CAPSULA ADDICIONAL CARON VEZ JENNI EYELID FOR DIARRHEA CUANDO SEA NECESARIO) 60 capsule 1 025 2024 Discontinued Hospital, Clinic, or Other Facility Administered Medication Ordered Dose Route Frequency Start Date End Date Status cyanocobalamin (Vitamin B-12) injection 1,000 mcgIndications:Low serum vitamin B12,Numbness in feet 1000 mcg IM Weekly 02/05/2025 03/05/2025 Active Active Problems Problem Noted Date Diagnosed Date [...] Encounters Date Type Department Care Team Description 02/16/2025 2:30 PM EDT Clinical Support [address] [address] Shannon Mars, LENNY B12 deficiency 02/16/2025 2:20 PM EDT Office Visit [facility] [place] [address] Crushing injury of right little finger, initial encounter (Primary Dx) 02/16/2025 Travel 02/06/2025 9:00 AM EDT Clinical Support [address] [address] Tatiana Kevin RN B12 deficiency 02/06/2025 Travel 02/05/[address] [address] Summer Ball ANP No Show 02/01/[address] [address] Mauricio Jane MD Diabetic polyneuropathy associated with type 2 diabetes mellitus (CMS/HCC) 01/27/2025 9:45 AM EDT Office Visit [address] [address] Summer Ball ANP Type 2 diabetes mellitus with hyperlipidemia (CMS/HCC) ([facility]/HCC) (Primary Dx); Essential hypertension; Moderate persistent asthma without complication; Cigarette nicotine dependence without complication; Hypomagnesemia 01/27/2025 Results Follow-Up [address] [address] Summer Ball ANP POCT HGB A1C, POCT Glucose, Magnesium, Additional followed-up results: 3 01/27/2025 Travel 01/26/[address] [address] Jonel Bishop [place] Chart Prep 01/20/[address] [address] Michelle Blunt RN Paperwork/Forms 01/20/2025 Orders Only [address] [address] Summer Ball ANP Type 2 diabetes mellitus with hyperlipidemia ([facility]/HCC) ([facility]) (Primary Dx) 01/14/2025 [facility] [address] Summer Ball ANP 01/13/2025 Orders Only [facility] [address] [place] [address] Summer Ball ANP Type 2 diabetes mellitus with hyperlipidemia ([facility]/HCC) ([facility]) (Primary Dx) 01/13/2025 Telephone [facility] [address] [place] [address] Summer Ball ANP 01/09/2025 Refill [facility] [address] [place] [address] Summer Ball ANP Type 2 diabetes mellitus treated with insulin ([facility]) 01/06/2025 Refill [facility] [address] [place] [address] Summer Ball ANP Type 2 diabetes mellitus with hyperlipidemia ([facility]) ([facility]); Hypoglycemia 12/21/2024 Refill [facility] [address] [place] [address] Summer Ball ANP Moderate persistent asthma without complication 12/16/2024 Orders Only [facility] [address] [place] [address] Summer Ball ANP Type 2 diabetes mellitus with hyperlipidemia ([facility]) ([facility]); Hypoglycemia 12/08/2024 Refill [facility] [address] [place] [address] Summer Ball ANP Diabetic polyneuropathy associated with type 2 diabetes mellitus ([facility]) from Last 3 Months Immunizations [...] Tobacco: Current Tobacco Cessation:Ready to Q uit: Yes; Counseling Given: Yes Alcohol Use Standard Drinks/Week Comments Yes 0 [...] Sign Reading Time Taken Comments Blood Pressure 141/85 02/16/2025 2:29 PM EDT Pulse 97 02/16/2025 2:29 PM EDT Temperature 36.8 C (98.3 F) 02/16/2025 2:29 PM EDT Respiratory Rate 18 02/16/2025 2:29 PM EDT Oxygen Saturation 96% 02/16/2025 2:29 PM EDT Inhaled Oxygen Concentration - - Weight 85.7 kg (189 lb) 02/16/2025 2:29 PM EDT Height 175.3 cm (5' 9 ) 01/27/2025 10:07 AM EDT Body Mass Index 27.91 01/27/2025 10:07 AM EDT Plan of Treatment Upcoming Encounters Date Type Department Care Team (Late st Contact Info) Description 02/23/2025 10:30 AM EDT Clinical Support [address] [address] 04/23/2025 11:00 AM EDT Office Visit [facility] [address] [place] [address] [phone] Summer Ball ANP [address] [place] [address] Health Maintenance Due Date Last Done Comments CT Colonography 1960 FIT DNA/Cologuard 1960 FIT 1960 FOBT 1960 Sigmoidoscopy 1960 RSV Patients and Patients Aged 60 years or older (1 - Risk 60-74 years 1-dose series) 2020 Zoster Vaccines (2 of 2) 09/28/2020 08/03/2020 COVID-19 Vaccine (2 - season) 2024 10/27/2020 Dental Oral Exam 10/14/2024 04/15/2024, 09/20/2022 Influenza Vaccine (#1) 2025 07/13/1998 Dental X-Ray: Bitewings 04/16/2025 04/15/2024, 09/20 Dental Prophylaxis 04/19/2025 10/16/2024, 0 04/15/2024, 11/06/2022 Diabetes: Hemoglobin A1C 04/29/2025 025, 04/18/2024, 01/15/2024, Additional history exists Dental X-Ray: Full Mouth 09/21/2025 09/20/2022 Alcohol/Substance Use Screening 01/27/2026 01/27/2025 Depression Screening 01/27/2026 01/27/2025, 01/28/20 Diabetes: Foot Exam 01/27/2026 01/27/2025, 01/27/2025, 01/27/2025, Additional history exists Diabetes: Urine Protein Screening 01/27/2026 01/27/2025, 04/18/2024, 10/09/2022, Additional history exists Disability Screening 01/27/2026 01/27/2025 Lipid Panel 01/27/2026 01/27/2025, 08/13, 03/15/2022, Additional history exists SDOH Screening 01/27/2026 01/27/2025 Tobacco Screening 01/27/2026 [...] Procedure Name Priority Date/Time Associated Diagnosis Comments ALBUMIN, RANDOM URINE W/CREATININE Routine 01/27/2025 10:56 AM EDT Type 2 diabetes mellitus with hyperlipidemia (CMS/HCC) ([facility]) VITAMIN B12 Routine 01/27/2025 10:56 AM EDT Type 2 diabetes mellitus with hyperlipidemia (CMS/HCC) ([facility]) LIPID PANEL, STANDARD Routine 01/27/2025 10:56 AM EDT Type 2 diabetes mellitus with hyperlipidemia (CMS/HCC) ([facility]) MAGNESIUM Routine 01/27/2025 10:56 AM EDT Hypomagnesemia POCT GLYCATED HEMOGLOBIN, TOTAL Routine 01/27/2025 10:13 AM EDT Type 2 diabetes mellitus with hyperlipidemia (CMS/HCC) ([facility]) POCT GLUCOSE Routine 01/27/2025 10:10 AM EDT Type 2 diabetes mellitus with hyperlipidemia (CMS/HCC) ([facility]) PROPHYLAXIS - ADULT Routine 10/16/2024 1 0:00 AM EST Dental calculus BITEWINGS - 4 RADIOGRAPHIC IMAGES Routine 04/15/2024 9:00 AM EDT Tipped teeth Dental abscess Dental calculus Dental caries Missing teeth, acquired PERIODIC ORAL EVALUATION - ESTABLISHED PATIENT Routine 04/15/2024 9:00 AM EDT HM COLONOSCOPY Routine 10/18/2022 INTRAORAL - COMPLETE SERIES OF RADIOGRAPHIC IMAGES Routine 09/20/2022 11:00 AM EST ZZZ HISTORICAL HEPATITIS C AB W/REFL TO HCV RNA, QN, PCR Routine 07/22/2020 8:45 AM EST HIV 1/2 ANTIGEN/ANTIBODY, FOURTH GENERATION W/RFL Routine 07/22/2020 8:45 AM EST from Last 3 Months or Most Recently Relevant to Health Maintenance Results * Albumin, Random Urine W/Creatinine (01/27/2025 10:56 AM EDT) Creatinine, Urine 138.71 mg/dL [facility] Microalbumin Urine 32.0 mg/L [facility] Microalbum Creatinine Ratio Ur 23.0 <30 ug/mg cr [facility] Comment:Albumin/Creatinine R atio Reference Ranges: Normal: < 30 ug/mg creatinine Microalbuminuria: 30 - 300 ug/mg creatinineClinical Albuminuria: > 300 ug/mg creatinine Urine (Urine, Random) 01/27/2025 10:56 AM EDT 01/27/2025 11:31 AM EDT Summer Ball ANP LAB URINE ORDERABLES Final Resul t Performing Organization Address City/[facility]/ZIP Co de Phone Number [facility] [address] [place] [phone] * Magnesium (01/27/2025 10:56 AM EDT) Magnesium 2.1 1.6 - 2.6 mg/dL [facility] Blood Venous blood specimen / Unknown 01/27/2025 10:56 AM EDT 01/27/2025 11:45 AM EDT Summer Ball ANP LAB BLOOD ORDERABLES Final Resul t Performing Organization Address [facility] Co de Phone Number [facility] [address] [place] [phone] * Vitamin B12 (01/27/2025 10:56 AM EDT) Vitamin B12 292 200 - 900 pg/mL [facility] Comment:NORMAL 200-900 PG/ML INDETERMINATE 160-199 PG/ML DEFICIENT < 160 PG/ML Blood Venous blood specimen / Unknown 01/27/2025 10:56 AM EDT 01/27/2025 11:45 AM EDT Summer Ball ANP LAB BLOOD ORDERABLES Final Resul t Performing Organization Address City/[facility] Co de Phone Number [facility] [address] [place] [address] [phone] * Lipid Panel, Standard (01/27/2025 10:56 AM EDT) Triglycerides 68 <150 mg/dL [facility] Comment:Desirable Triglyceri de: less than 150 mg/dLBorderline High Triglyceride 150-199 mg/dLHigh Triglyceride: 200-499 mg/dLVery High Triglyceride: greater than or equal to 5OO mg/dL Cholesterol 159 <200 mg/dL [facility] Comment:Desirable Cholestero l: less than 200 mg/dLBorderline High Cholesterol: 200-239 mg/dLHigh Cholesterol: greater than 239 mg/dL LDL Cholesterol Calculated 85 <100 mg/dL [facility] Comment:Desirable LDL: less than 100 mg/dLNear Optimal/Above Optimal LDL: 110- 129 mg/dLBorderline High LDL: 130-159 mg/dLHigh LDL: 160-189 mg/dLVery High LDL: greater than or equal to 190 mg/dL HDL Cholesterol 61 >40 mg/dL [facility] Comment:Desirable HDL: great er than 40 mg/dL Note: This HDL assay may give artificially low results in patients with liver disease. Blood Venous blood specimen / Unknown 01/27/2025 10:56 AM EDT 01/27/2025 11:45 AM EDT us Summer Ball ANP LAB BLOOD ORDERABLES Final Resul t [facility] [address] [place] [phone] * (ABNORMAL) POCT HGB A1C (01/27/2025 10:13 AM EDT) Hemoglobin A1C 8.3(A) 4.0 - 6.0 % QC Media Lot # [id number] Lot# Expiration Date [id number] Blood 01/27/2025 10:1 3 AM EDT us Summer Ball ANP POINT OF CARE TEST ENTER/EDIT OR DERABLES Final Result * POCT Glucose (01/27/2025 10:10 AM EDT) Glucose Blood, POC 200 60 - 200 mg/dL QC Media Lot # [id number] Lot# Expiration Date ,[id number] Blood Capillary blood specimen / Unknown 01/27/2025 10:10 AM EDT Summer BROWNING POINT OF CARE TEST ENTER/EDIT OR DERABLES Final Result * Hm Colonoscopy (10/18/2022) Colonoscopy Normal Normal Historical Provider HEALTH MAINTENANCE Final Result * HEPATITIS C AB W/REFL TO HCV RNA, QN, PCR (07/22/2020 8:45 AM EST) Pathologist [facility] HEPATITIS C ANTIBODY NON-REACT MARIYA NON-REACT MARIYA [facility] INDEX 0.01 <1.00 [facility] Comment: HCV antibody was non-reactive. There is no laboratory evidence of HCV infection. In most cases, no further action is required. However, if recent HCV exposure is suspected, a test for HCV RNA (test code 27944) is suggested. For additional information please refer to http://education.[employer]/faq/PDF27i3 (This link is being provided for informational/ educational purposes only.) 07/22/2020 8:45 AM EST us Summer Ball ANP HISTORICAL/NON ORDERABLE LABS Fi nal Result [facility] [address] * HIV 1/2 ANTIGEN/ANTIBODY,FOURTH GENERATION W/RFL (07/22/2020 8:45 AM EST) Pathologist [facility] HIV-1/2 ANTIGEN AND ANTIBODIES, 4TH GENERATION W/ REFLEX NON-REACT MARIYA NON-REACT MARIYA [facility] Comment: HIV-1 antigen and HIV-1/HIV-2 antibodies were not detected. There is no laboratory evidence of HIV infection. PLEASE NOTE: This information has been disclosed to you from records whose confidentiality may be protected by state law. If your state requires such protection, then the state law prohibits you from making any further disclosure of the information without the specific written consent of the person to whom it pertains, or as otherwise permitted by law. A general authorization for the release of medical or other information is NOT sufficient for this purpose. For additional information please refer to http://education.[employer]/faq/GIY180 (This link is being provided for informational/ educational purposes only.) The performance of this assay has not been clinically validated in patients less than 2 years old. 07/22/2020 8:45 AM EST us [facility] LAB BLOOD ORDERABLES Final Resul t [facility] [address] from Last 3 Months or Most Recently Relevant to Health Maintenance Insurance [place] [address] [place] [phone] [facility] STAND ADULT Care Teams Email Developer Relationship Specialty Start Date End Date Summer Ball ANP [address] [place] [phone] PCP - General Family Medicine 06/28/20
== END 2025-02-16 15:19 | disposition home or self-care (01) ==
LOC: HO.HHCX 15:18
PROVIDERS: Visit Provider Nurse Practitioner
DX: S67.196A Crushing injury of right little finger, initial encounter (principal)
CPT/HCPCS: 73130

== ENCOUNTER → 2025-02-16 15:22 | Outpatient (BNV) | payer MEDICARE, MEDICAID, SELFPAY | PROVIDERS: Visit Provider Radiology Diagnostic Radiology | DX: S62.606A Fracture of unspecified phalanx of right little finger, initial encounter for closed fracture (principal); S60.456A Superficial foreign body of right little finger, initial encounter | CPT/HCPCS: 73130 ==

== ENCOUNTER 2025-02-20 08:20 | Outpatient (REF) | payer MEDICARE, MEDICAID, SELFPAY ==
--- NOTE | ~2025-02-20 | XR_ITS ---
EXAMINATION: XR HAND 3 OR MORE VIEWS RIGHT HISTORY: M79.641 - Pain in right hand COMPARISON: Comparison is made with the prior examination dated 02/16/2025. FINDINGS: Three views of the right hand are submitted. Osseous mineralization is normal. Again seen is a minimally displaced fracture of the distal tuft of the 5th finger. The fracture line remains visible. The joint spaces are preserved. Again seen is a metallic foreign body in the dorsal soft tissues overlying the middle phalanx of the 5th finger. XR/XR hand RT min 3V IMPRESSION: 1. Minimally displaced fracture of the distal tuft of the 5th finger without change. 2. Metallic foreign body adjacent to the middle phalanx of the 5th finger without change. Electronically signed by: Aleks Alvarez MD 02/20/2025 08:50 AM EDT
== END 2025-02-20 08:21 | disposition home or self-care (01) ==
LOC: HO.HOSX 08:20
PROVIDERS: Visit Provider Orthopaedic Surgery
DX: S62.636B Displaced fracture of distal phalanx of right little finger, initial encounter for open fracture (principal); W23.0XXA Caught, crushed, jammed, or pinched between moving objects, initial encounter; Y93.9 Activity, unspecified; Y92.9 Unspecified place or not applicable; Y99.9 Unspecified external cause status; M79.5 Residual foreign body in soft tissue
CPT/HCPCS: 73130; 99202

== ENCOUNTER 2025-02-20 08:20 | Outpatient (AMB) | payer MEDICARE, MEDICAID, SELFPAY ==
--- OUTSIDE RECORDS SUMMARY | 2025-02-20 08:25 | XMS_ITS | Clinical Summary ---
Author Organization [employer] Address [address] [facility] [address] [place] [address] Care Team Providers Care Equipment Maintenance Tech Name Role Phone Summer Ball Primary Care Provider [phone] Allergies No known active allergies Medications albuterol [...] 10d 30 tablet 023 Active Continuous Glucose Tour Guide (FreeStyle Lex 2 [place]) deviceIndication s:Type 2 diabetes mellitus with hyperlipidemia (CMS/HCC) (CMS/[facility]),Hypogl ycemia Scan sensor every 4-6 [...] ions:Type 2 diabetes mellitus with hyperlipidemia (CMS/HCC) ([facility]) INJECT 56 UNITS SUBCUTANEOUSLY ONCE [...] stripIndications :Type 2 diabetes mellitus with hyperlipidemia ([facility]/HCC) ([facility]),Hypogl ycemia TEST BLOOD SUGAR 3 TIMES A DAY 100 strip 11 025 Active BD Pen Needle Mere Ultrafine 32G X 4 MM miscIndications: Type 2 diabetes mellitus treated with insulin ([facility]) USE THREE TIMES DAILY DIRECTED 100 each 6 025 Active insulin aspart FlexPen (NovoLOG) 100 UNIT/ML penIndications:T ype 2 diabetes mellitus with hyperlipidemia ([facility]/HCC) ([facility]) Inject 8-14 units subcutaneously twice daily with largest meals of the day 15 mL 2 025 Active cholecalciferol (Vitamin D-3) 10 MCG (400 UNIT) tablet TAKE 1 TABLET BY MOUTH EVERY MORNING 90 tablet 3 025 Active TRUEplus Lancets 33G miscIndications: Type 2 diabetes mellitus with hyperlipidemia ([facility]/HCC) ([facility]) Use to test BG 3 times daily 100 each 11 025 Active Dulaglutide (Trulicity) 0.75 MG/0.5ML solution auto-injectorInd ications:Type 2 diabetes mellitus with hyperlipidemia (CMS/HCC) ([facility]) Inject 0.75 mg under the [...] AT BEDTIME (Y TOME 1 CAPSULA ADDICIONAL CARNO VEZ JENNI EL LIV CUANDO SEA NECESARIO) 60 capsule 1 Active metFORMIN XR (Glucophage-XR) 750 MG 24 [...] NECESARIO) 60 capsule 1 025 2024 Discontinued amoxicillin-clav ulanate (Augmentin) 875-125 MG tabletIndication s:Crushing injury of right little finger, initial encounter Take 1 tablet by mouth 2 times daily for 2 days. 4 tablet 025 07/09/ 2025 Hospital, Clinic, or Other Facility Administered Medication [...] Encounters Date Type Department Care Team Description 02/18/2025 11:30 AM EDT Clinical Support [address] [address] Fany Chi RN Crushing injury of right little finger, subsequent encounter [S67.196D] 02/18/2025 Travel 02/17/2025 Results Follow-Up [facility] [address] [address] Stefanie Garcia NP XR Hand 3+ Views Right 02/16/2025 2:30 PM EDT Clinical Support [address] [address] Shannon Mars RN B12 deficiency 02/16/2025 2:20 PM EDT Office Visit [facility] [address] [address] Stefanie Garcia NP Crushing injury of right little finger, initial encounter (Primary Dx) 02/16/2025 Travel 02/06/2025 9:00 AM EDT Clinical Support [address] [address] Tatiana Kevin RN B12 deficiency 02/06/2025 Travel 02/05/[address] [address] Summer Ball ANP No Show 02/01/[address] [address] Name, MD Mauricio Diabetic polyneuropathy associated with type 2 diabetes mellitus ([facility]/HCC) 01/27/2025 9:45 AM EDT Office Visit [address] [address] Summer Ball ANP Type 2 diabetes mellitus with hyperlipidemia (CMS/HCC) ([facility]) (Primary Dx); Essential hypertension; Moderate persistent asthma without complication; Cigarette nicotine dependence without complication; Hypomagnesemia 01/27/2025 Results Follow-Up [address] [address] Summer Ball ANP POCT HGB A1C, POCT Glucose, Magnesium, Additional followed-up results: 3 01/27/2025 Travel 01/26/[address] [address] Jonel Bishop MA Chart Prep 01/20/2025 Telephone [facility] [address] [facility] [place] [address] Michelle Blunt RN Paperwork/Forms 01/20/2025 Orders Only [facility] [address] [place] [address] Summer Ball ANP Type 2 diabetes mellitus with hyperlipidemia ([facility]/HCC) ([facility]) (Primary Dx) 01/14/2025 Refill [facility] [address] [facility] [place] [address] Summer Ball ANP 01/13/2025 Orders Only [facility] [address] [facility] [address] [facility] [place] [address] Summer Ball ANP Type 2 diabetes mellitus with hyperlipidemia ([facility]/HCC) ([facility]) (Primary Dx) 01/13/2025 Telephone [facility] [address] [facility] [place] [address] Summer Ball ANP 01/09/2025 Refill [facility] [address] [facility] [place] [address] Summer Ball ANP Type 2 diabetes mellitus treated with insulin ([facility]/HCC) 01/06/2025 Refill [facility] [address] [facility] [place] [address] Summer Ball ANP Type 2 diabetes mellitus with hyperlipidemia ([facility]/HCC) ([facility]); Hypoglycemia 12/21/2024 Refill [facility] [address] [facility] [place] [address] Summer Ball ANP Moderate persistent asthma without complication 12/16/2024 Orders Only [facility] [address] [facility] [place] [address] Summer Ball ANP Type 2 diabetes mellitus with hyperlipidemia ([facility]/HCC) ([facility]); Hypoglycemia 12/08/2024 Refill [facility] [address] [facility] [place] [address] Summer Ball ANP Diabetic polyneuropathy associated with type 2 diabetes mellitus ([facility]/HCC) from Last 3 Months Immunizations Immunization Administration [...] EDT Sexual Orientation Choose not to disclose 10/31/ 2022 10:15 AM EDT Last Filed Vital Signs [...] Description 02/23/2025 10:30 AM EDT Clinical Support [address] [address] 04/23/2025 11:00 AM EDT Office Visit [facility] [address] [place] [phone] Summer Ball, ANP [address] [place] [address] Health Maintenance Due Date Last Done Comments [...] 01/27/2026 01/27/2025 Depression Screening 01/27/2026 01/27/2025, 01/28/20 25 Diabetes: Foot Exam 01/27/2026 01/27/2025, 01/27/2025, 01/27/2025, Additional history exists Diabetes: Urine Protein Screening 01/27/2026 01/27/2025, 04/18/2024, 10/09/2022, Additional history exists Disability Screening 01/27/2026 01/27/2025 Lipid Panel 01/27/2026 01/27/2025, 08/13, 03/15/2022, Additional history exists SDOH Screening 01/27/2026 01/27/2025 Tobacco Screening 02/17/2026 02/17/2025 Eye Exam 05/01/2026 05/01/2024, 04/13, 05/01/2024, Additional [...] Procedure Name Priority Date/Time Associated Diagnosis Comments XR HAND 3+ VIEWS RIGHT Routine 02/16/2025 2:41 PM EDT Crushing injury of right little finger, initial encounter ALBUMIN, RANDOM URINE W/CREATININE Routine 01/27/2025 10:56 AM EDT Type 2 diabetes mellitus with hyperlipidemia (CMS/HCC) (CMS/HCC) VITAMIN B12 Routine 01/27/2025 10:56 AM EDT Type 2 diabetes mellitus with hyperlipidemia (CMS/HCC) (CMS/HCC) LIPID PANEL, STANDARD Routine 01/27/2025 10:56 AM EDT Type 2 diabetes mellitus with hyperlipidemia (CMS/HCC) (CMS/HCC) MAGNESIUM Routine 01/27/2025 10:56 AM EDT Hypomagnesemia POCT GLYCATED HEMOGLOBIN, TOTAL Routine 01/27/2025 10:13 AM EDT Type 2 diabetes mellitus with hyperlipidemia (CMS/HCC) (CMS/HCC) POCT GLUCOSE Routine 01/27/2025 10:10 AM EDT Type 2 diabetes mellitus with hyperlipidemia (CMS/HCC) (CMS/HCC) PROPHYLAXIS - ADULT Routine 10/16/2024 1 0:00 [...] Recently Relevant to Health Maintenance Results * XR Hand 3+ Views Right (02/16/2025 2:41 PM EDT) Anatomical Region Laterality Modality Upper Extremities, Hand Right Radiogra phic Imaging 02/16/2025 2:41 PM EDT Narrative 02/16/2025 4:07 PM EDT [address] [address] XRay Report Signed Patient: Jabari Blunt MR#: [id number] : 1960 Acct:[id number] Age/Sex: 64 / M ADM Date: 02/16/25 Loc: .HHCX Attending Dr: Stefanie Garcia Ordering Physician: Stefanie Garcia Date of Service: 02/16/25 Procedure(s): XR hand RT min 3V Accession Number(s): [id number] cc: Stefanie Garcia EXAMINATION: XR HAND, RIGHT CLINICAL INFORMATION: right little finger injury COMPARISON: None available. TECHNIQUE: PA, lateral, and oblique views of the hand and PA and lateral views of the fifth digit views of the right hand. FINDINGS: Punctate midthigh foreign body is present in the soft tissues dorsal to the middle phalanx of the fifth digit. There is a fracture through the tuft of the fifth digit. No other abnormalities are evident XR/XR hand RT min 3V IMPRESSION: Acute fracture of the fifth digit. Metallic foreign body in the soft tissues dorsal to the fifth middle phalanx Electronically signed by: Aubrey Evans MD 02/16/2025 04:04 PM EDT Dictated By: Aubrey Evans MD Signed By: <Electronically signed by Aubrey Evans MD in OV> 02/16/25 1604 DD/ 1441 TD/TT: 02/16/25 1452 Clerical Administrator: Procedure Note Donotuseinterpreter, Image - 02/16/2025 [facility] [address] [facility] [place] [address] XRay Report Signed Patient: Jovi Blunt#: [id number] : 1960Acct:[id number] Age/Sex: 64 / MADM Date: 02/16/25 Loc: HO.HHCX Attending Dr: Stefanie Garcia Ordering Physician: Stefanie Garcia Date of Service: 02/16/25 Procedure(s): XR hand RT min 3V Accession Number(s): [id number] cc: Stefanie Garcia EXAMINATION: XR HAND, RIGHT CLINICAL INFORMATION: right little finger injury COMPARISON: None available. TECHNIQUE: PA, lateral, and oblique views of the hand and PA and lateral views of the fifth digit views of the right hand. FINDINGS: Punctate midthigh foreign body is present in the soft tissues dorsal to the middle phalanx of the fifth digit. There is a fracture through the tuft of the fifth digit. No other abnormalities are evident XR/XR hand RT min 3V IMPRESSION: Acute fracture of the fifth digit. Metallic foreign body in the soft tissues dorsal to the fifth middle phalanx Electronically signed by: Aubrey Evans MD 02/16/2025 04:04 PM EDT Dictated By: Aubrey Evans MD Signed By: <Electronically signed by Aubrey Evans MD in OV> 02/16/25 1604 DD/ 1441 TD/TT: 02/16/25 1452 Clerical Administrator: us Stefanie Garcia [employer] IMG XR PROCEDURES Final Result * Albumin, Random Urine W/Creatinine (01/27/2025 10:56 AM EDT) Creatinine, Urine 138.71 mg/dL [facility] Microalbumin Urine 32.0 mg/L [facility] Microalbum Creatinine Ratio Ur 23.0 <30 ug/mg cr [facility] Comment:Albumin/Creatinine R atio Reference Ranges: Normal: < 30 ug/mg creatinine Microalbuminuria: 30 - 300 ug/mg creatinineClinical Albuminuria: > 300 ug/mg creatinine Urine (Urine, Random) 01/27/2025 10:56 AM EDT 01/27/2025 11:31 AM EDT Summer Ball ANP LAB URINE ORDERABLES Final Resul t Performing Organization Address [facility] Co de Phone Number [facility] [address] [place] [phone] * Magnesium (01/27/2025 10:56 AM EDT) Magnesium 2.1 1.6 - 2.6 mg/dL [facility] Blood Venous blood specimen / Unknown 01/27/2025 10:56 AM EDT 01/27/2025 11:45 AM EDT Summer Ball ANP LAB BLOOD ORDERABLES Final Resul t Performing Organization Address [facility] de Phone Number [facility] [address] [place] [phone] * Vitamin B12 (01/27/2025 10:56 AM EDT) Pathologist [facility] Vitamin B12 292 200 - 900 pg/mL [facility] Comment:NORMAL 200-900 PG/ML INDETERMINATE 160-199 PG/ML DEFICIENT < 160 PG/ML Blood Venous blood specimen / Unknown 01/27/2025 10:56 AM EDT 01/27/2025 11:45 AM EDT Summer Ball ANP LAB BLOOD ORDERABLES Final Resul t Performing Organization Address [facility] Phone Number [facility] [address] [place] [phone] * Lipid Panel, Standard (01/27/2025 10:56 AM EDT) Triglycerides 68 <150 mg/dL [facility] Comment:Desirable Triglyceri de: less than 150 mg/dLBorderline High Triglyceride 150-199 mg/dLHigh Triglyceride: 200-499 mg/dLVery High Triglyceride: greater than or equal to 5OO mg/dL Cholesterol 159 <200 mg/dL [facility] Comment:Desirable Cholestero l: less than 200 mg/dLBorderline High Cholesterol: 200-239 mg/dLHigh Cholesterol: greater than 239 mg/dL LDL Cholesterol Calculated 85 <100 mg/dL [facility] Comment:Desirable LDL: less than 100 mg/dLNear Optimal/Above Optimal LDL: 110- 129 mg/dLBorderline High LDL: 130-159 mg/dLHigh LDL: 160-189 mg/dLVery High LDL: greater than or equal to 190 mg/dL HDL Cholesterol 61 >40 mg/dL [facility] Comment:Desirable HDL: great er than 40 mg/dL Note: This HDL assay may give artificially low results in patients with liver disease. Blood Venous blood specimen / Unknown 01/27/2025 10:56 AM EDT 01/27/2025 11:45 AM EDT Summer Ball ANP LAB BLOOD ORDERABLES Final Resul t [facility] [address] [place] [address] [phone] * (ABNORMAL) POCT HGB A1C (01/27/2025 [...] / Unknown 01/27/2025 10:10 AM EDT us Sumemr BROWNING POINT OF CARE TEST ENTER/EDIT OR DERABLES Final Result * Hm Colonoscopy (10/18/2022) Pathologist [facility] Colonoscopy Normal Normal Historical Provider MD HEALTH MAINTENANCE Final Result * HEPATITIS C AB W/REFL TO HCV RNA, QN, PCR (07/22/2020 8:45 AM EST) Pathologist [facility] HEPATITIS C ANTIBODY NON-REACT MARIYA NON-REACT MARIYA [facility] INDEX 0.01 <1.00 [facility] Comment: HCV antibody was non-reactive. There is no laboratory evidence of HCV infection. In most cases, no further action is required. However, if recent HCV exposure is suspected, a test for HCV RNA (test code 41921) is suggested. For additional information please refer to http://education.[employer]/faq/ESX68o1 (This link is being provided for informational/ educational purposes only.) 07/22/2020 8:45 AM EST us Summer Ball ANP HISTORICAL/NON ORDERABLE LABS Fi nal Result Performing Organization Address City/State/[facility] Co de Phone Number [facility] [address] * HIV 1/2 ANTIGEN/ANTIBODY,FOURTH GENERATION W/RFL (07/22/2020 8:45 AM EST) Pathologist [facility] HIV-1/2 ANTIGEN AND ANTIBODIES, 4TH GENERATION W/ REFLEX NON-REACT MARIYA NON-REACT MARIYA [facility] Comment: HIV-1 antigen and HIV-1/HIV-2 [...] purpose. For additional information please refer to http://education.[employer]/faq/APU009 (This link is being provided for informational/ educational purposes only.) The performance of this assay has not been clinically validated in patients less than 2 years old. 07/22/2020 8:45 AM EST [facility] LAB BLOOD ORDERABLES Final Resul t [facility] [address] from Last 3 Months or Most Recently Relevant to Health Maintenance Insurance [facility]IC[facility] STAND ADULT Care Teams Equipment Maintenance Tech Relationship Specialty Start Date End Date Summer Ball ANP [address] [place] [address] PCP - General Family Medicine 06/28/20
--- NOTE | 2025-02-20 08:26 | A.OFFVIS_ITS ---
Vital Signs 02/20/25 08:51 Height 5 ft 9 in Weight 195 lb BMI 28.8 Handedness Right Intake Visit Reasons: FC - Right Small Finger Crush Injury 02/14/25 Intake Note: Jabari is a 64 year old right hand dominant male who presents today for a Fracture Care visit s/p Crush injury of the Right Small Finger. Patient states that he was moving a boiler on 02/14/25 when his finger became lodged between the boiler and the wall. This is not a work related injury. He did not seek immediate medical attention but did see his PCP at [facility]. At the visit his finger was cleaned and sterile dressing was applied. Xrays showed a 5th digit tuft fracture and metallic foreign body. He was placed on a course of abx, which he continues to take. Allergies No Known Allergies Allergy (Verified 07/23/24 10:24) HPI HPI FC - Right Small Finger Crush Injury 02/14/25: Details: Patient is a 64-year-old man who sustained a crush injury to the tip of his right small finger on 02/14/2025 when his finger got caught between something in a boiler. This happened in his home. He says he currently does not work. He says he was seen in the emergency department and placed on antibiotics which he is still taking. [facility] Medical History Nicotine dependence, cigarettes, uncomplicated Tubular adenoma of colon (~2011) Type 2 diabetes mellitus Coronary artery disease Hyperlipidemia Hypertension Asthma Surgical History History of cervical discectomy History of colonoscopy History of cardiac cath (~2011) Family History Maternal Uncle Prostate cancer Family/Other Skin cancer Social History Alcohol intake: current Alcohol intake frequency: holidays/special occasions only Patient Tobacco Use Status: Current everyday Tobacco user Cigarettes Per Day: 10 Years Smoked: onset 20yo, 1/2-1ppd x 42yrs, 30pyh Physical Exam Vital Signs: BMI result Body Mass Index 28.8 Const General: cooperative, healthy appearing and no acute distress Orientation/consciousness: oriented to person and oriented to place HEENT Head: Yes normocephalic and Yes atraumatic Eyes EOM: EOMs intact bilaterally Resp Effort & Inspection: normal respiratory effort and able to speak in complete sentences Cardio Jugular venous distension: no JVD Skin General skin exam: turgor normal Rashes: no rashes Neuro General: oriented to person and oriented to place Extrem Other: Evaluation of right Upper Extremity: He has an injury to the tip of his right small finger. The distal half of the nail bed is attached, and it looks like he has got a subungual hematoma under the proximal aspect. Some of the skin on the ulnar pad of the finger appears to have split open and is healing with some early granulation tissue. There is currently no drainage. Mild tenderness at the tip of the finger. He has a flexion contracture at the PIP joint and says that he had surgery on the small finger PIP joint in [place] years ago. He is able to flex the digit to a fist but is only able to open the PIP joint or perhaps 70 degrees from full extension Radiographs: Three views of the right hand show a minimally displaced tuft fracture of the right small finger distal phalanx. PIP joint is held in some flexion. Psych Appearance: grossly normal Affect: normal affect Attitude: cooperative Office Procedures AMB Fracture Care Details: Fracture care [id number] distal phalanx fracture Fracture Billing Code: Fracture Billing Code Assessment & Plan Assessment & Plan (1) Open fracture of distal phalanx of right little finger: Code(s): S62.636B - Displaced fracture of distal phalanx of right little finger, initial encounter for open fracture Category: Medical Plan Assessment and plan: 1. Right small finger open distal phalanx fracture, minimally displaced Date of injury 02/14/2025 I educated the patient about this condition Talked about the importance of wound care and activity modification He is going to continue taking his antibiotics until they are finished I also talked to him about avoiding dirty activities, cleaning under his finger nail and cutting it shorter. He will follow up in 2-3 weeks for wound check. We can also get new radiographs. Orders: Orders XR hand RT min 3V Today M79.641 - Pain in right hand Coding Level of Care Code New Pt Level 3 (77156) Diagnoses Open fracture of distal phalanx of right little finger S62.636B CPT Codes Fracture Care - Fracture Billing Code: Fracture Billing Code ([id number])
[2025-02-20 08:51] VITALS: BMI 28.8
== END 2025-02-20 09:14 | disposition home or self-care (01) ==
PROVIDERS: Visit Provider Orthopaedic Surgery
DX: S62.636B Displaced fracture of distal phalanx of right little finger, initial encounter for open fracture (principal)
CPT/HCPCS: 99203

== ENCOUNTER → 2025-02-20 08:40 | Outpatient (BNV) | payer MEDICARE, MEDICAID, SELFPAY | PROVIDERS: Visit Provider Radiology Diagnostic Radiology | DX: M79.641 Pain in right hand (principal) | CPT/HCPCS: 73130 ==

== ENCOUNTER → 2025-02-23 08:40 | Outpatient (REF) | payer MEDICARE, MEDICAID, SELFPAY ==
--- NOTE | ~2025-02-23 | NM_ITS ---
EXERCISE MYOCARDIAL PERFUSION STUDY INDICATION: Chest pain TECHNIQUE: The patient was brought in for an exercise perfusion study on 02/23/2025. Patient performed exercise as per Donny protocol and was injected 30 mCi of sestamibi once target heart rate was achieved. Images were obtained using the SPECT gamma camera interlaced with the gating device. Images were obtained in supine position. Resting perfusion study was performed on 02/25/2025. Patient was administered 30 mCi of sestamibi intravenously at rest. Images were then obtained in supine position. Total DLP 68 mGy-cm. Images were processed with the software and compared side to side in short axis, horizontal long axis and vertical long axis views. FINDINGS: Raw aquisition reviewed. The stress perfusion study showed decreased tracer uptake along the inferior wall. There is improvement with CT attenuation correction suggestive of diaphragmatic attenuation artifact. The gated study shows normal LV systolic function with calculated LVEF of 59%. LV cavity is normal in size. The gated study shows normal wall thickening and contraction of segments. Resting study shows diminished tracer uptake along the inferior wall. There is improvement with CT attenuation correction suggestive of diaphragmatic attenuation artifact. Gating at rest reveals normal wall motion with ejection fraction at 50%. The findings are consistent with fixed inferior perfusion defect likely from diaphragmatic attenuation artifact. No clear reversible defects. NM/NM cardiolite stress test IMPRESSION: 1. Myocardial perfusion imaging study shows probably normal myocardial perfusion. 2. Gated LVEF is 59% during stress and 50% during rest. Correlate with echocardiogram. 3. Transient ischemic dilatation not present. EKG component of the test reported separately. Electronically signed by: Mario Cardenas MD 02/25/2025 11:24 AM EDT
--- NOTE | 2025-02-23 08:42 | CA_ITS ---
Acquisition Time: 2025-02-23 09:12:02 Total Exercise Time: 00:07:11 Test Indications: CHEST PAIN Medications: ASA Insulin Protocol: ANDRES Max HR: 134 BPM 85% of Pred: 156 BPM Max BP: 124/80 mmHG Max Work Load: 8.1 METS Exercise stress test with exercise 7 mins 11 secs of Andres Protocol, reduced speed to 3.0 mph, achieving 86% MPHR, with reports of SOB and fatigue, no chest pain, with isolated PVCs, with normotensive response to exercise. Without any EKG changes meeting criteria for ischemia. In recovery, pt's breathing improved and feeling back to baseline. Nuclear images pending. Test reviewed with the Dr. Cardenas. Referred By: Slade Varma Electronically Signed By: Eddie Gaspar
--- OUTSIDE RECORDS SUMMARY | 2025-02-23 08:45 | XMS_ITS | Clinical Summary ---
Author Organization [employer] Address [address] [facility] [address] [place] [address] Care Team Providers Care Staff Analyst Name Role Phone Summer Ball Primary Care Provider [phone] Allergies No known active allergies Medications albuterol [...] 10d 30 tablet 023 Active Continuous Glucose Librarian Specialist (FreeStyle Lex 2 [place]) deviceIndication s:Type 2 diabetes mellitus with hyperlipidemia (CMS/HCC) ([facility]),Hypogl ycemia Scan sensor every 4-6 [...] ions:Type 2 diabetes mellitus with hyperlipidemia (CMS/HCC) ([facility]) INJECT 56 UNITS SUBCUTANEOUSLY ONCE [...] stripIndications :Type 2 diabetes mellitus with hyperlipidemia ([facility]/HCC) ([facility]),Hypogl ycemia TEST BLOOD SUGAR 3 TIMES A DAY 100 strip 11 025 Active BD Pen Needle Mere Ultrafine 32G X 4 MM miscIndications: Type 2 diabetes mellitus treated with insulin ([facility]) USE THREE TIMES DAILY DIRECTED 100 each 6 025 Active insulin aspart FlexPen (NovoLOG) 100 UNIT/ML penIndications:T ype 2 diabetes mellitus with hyperlipidemia ([facility]/HCC) ([facility]) Inject 8-14 units subcutaneously twice daily with largest meals of the day 15 mL 2 025 Active cholecalciferol (Vitamin D-3) 10 MCG (400 UNIT) tablet TAKE 1 TABLET BY MOUTH EVERY MORNING 90 tablet 3 025 Active TRUEplus Lancets 33G miscIndications: Type 2 diabetes mellitus with hyperlipidemia ([facility]/HCC) ([facility]) Use to test BG 3 times daily 100 each 11 025 Active Dulaglutide (Trulicity) 0.75 MG/0.5ML solution auto-injectorInd ications:Type 2 diabetes mellitus with hyperlipidemia (CMS/HCC) ([facility]) Inject 0.75 mg under the [...] Description 02/18/2025 11:30 AM EDT Clinical Support [address] [address] Fany Chi RN Crushing injury of right little finger, subsequent encounter [S67.196D] 02/18/2025 Travel 02/17/2025 Results Follow-Up [facility] [address] [address] Stefanie Garcia NP XR Hand 3+ Views Right 02/16/2025 2:30 PM EDT Clinical Support [address] [address] Shannon Mars RN B12 deficiency 02/16/2025 2:20 PM EDT Office Visit [facility] [address] [address] Stefanie Garcia NP Crushing injury of right little finger, initial encounter (Primary Dx) 02/16/2025 Travel 02/06/2025 9:00 AM EDT Clinical Support [address] [address] Tatiana Kevin RN B12 deficiency 02/06/2025 Travel 02/05/[address] [address] Summer Ball ANP No Show 02/01/[address] [address] Name, MD Mauricio Diabetic polyneuropathy associated with type 2 diabetes mellitus ([facility]/HCC) 01/27/2025 9:45 AM EDT Office Visit [address] [address] Summer Ball ANP Type 2 diabetes mellitus with hyperlipidemia (CMS/HCC) ([facility]) (Primary Dx); Essential hypertension; Moderate persistent asthma without complication; Cigarette nicotine dependence without complication; Hypomagnesemia 01/27/2025 Results Follow-Up [address] [address] Summer Ball ANP POCT HGB A1C, POCT Glucose, Magnesium, Additional followed-up results: 3 01/27/2025 Travel 01/26/[address] [address] Jonel Bishop MA Chart Prep 01/20/2025 Telephone [facility] [address] [facility] [place] [address] Michelle Blunt RN Paperwork/Forms 01/20/2025 Orders Only [facility] [address] [facility] [place] [address] Summer Ball ANP Type 2 diabetes mellitus with hyperlipidemia ([facility]/HCC) ([facility]) (Primary Dx) 01/14/2025 Refill [facility] [address] [facility] [place] [address] Summer Ball ANP 01/13/2025 Orders Only [facility] [address] [facility] [place] [address] Summer Ball ANP Type 2 diabetes mellitus with hyperlipidemia ([facility]/HCC) ([facility]) (Primary Dx) 01/13/2025 Telephone [facility] [place] [address] Summer Ball ANP 01/09/2025 Refill [facility] [address] [facility] [address] [address] Summer Ball ANP Type 2 diabetes mellitus treated with insulin ([facility]/HCC) 01/06/2025 Refill [facility] [address] Summer Ball ANP Type 2 diabetes mellitus with hyperlipidemia ([facility]/HCC) ([facility]); Hypoglycemia 12/21/2024 Refill [facility] [place] [address] Summer Ball ANP Moderate persistent asthma without complication 12/16/2024 Orders Only [facility] [address] [facility] [place] [address] Summer Ball ANP Type 2 diabetes mellitus with hyperlipidemia ([facility]/HCC) ([facility]); Hypoglycemia 12/08/2024 Refill [facility] [place] [address] Summer Ball ANP Diabetic polyneuropathy associated with type 2 diabetes mellitus ([facility]/HCC) from Last 3 Months Immunizations Immunization Administration [...] Description 02/23/2025 10:30 AM EDT Clinical Support [address] [address] 04/23/2025 11:00 AM EDT Office Visit [facility] [address] [place] [address] Summer Ball, ANP [address] [place] [address] Health Maintenance Due Date Last Done Comments [...] PM EDT Narrative 02/16/2025 4:07 PM EDT [address] [address] XRay Report Signed Patient: Jabari Blunt MR#: [id number] : 1960 Acct:[id number] Age/Sex: 64 / M ADM Date: 02/16/25 Loc: .HHCX Attending Dr: Stefanie Garcia Ordering Physician: Stefanie Garcia Date of Service: 02/16/25 Procedure(s): XR hand RT min 3V Accession Number(s): [id number] cc: Stefanie Garcia EXAMINATION: XR HAND, RIGHT [...] 02/16/25 1604 DD/ 1441 TD/TT: 02/16/25 1452 Credit Clerk: Procedure Note Donotuseinterpreter, Image - 02/16/2025 [facility] [address] [place] [address] XRay Report Signed Patient: Jovi Blunt#: [id number] : 1960Acct:[id number] Age/Sex: 64 / MADM Date: 02/16/25 Loc: HO.HHCX Attending Dr: Stefanie Garcia Ordering Physician: Stefanie Garcia Date of Service: 02/16/25 Procedure(s): XR hand RT min 3V Accession Number(s): [id number] cc: Stefanie Garcia EXAMINATION: XR HAND, RIGHT [...] 02/16/25 1604 DD/ 1441 TD/TT: 02/16/25 1452 Credit Clerk: us Stefanie Garcia VENEER STOCK [facility]ER IMG XR PROCEDURES Final Result * Albumin, Random Urine W/Creatinine (01/27/2025 10:56 AM EDT) Creatinine, Urine 138.71 mg/dL [facility] Microalbumin Urine 32.0 mg/L [facility] Microalbum Creatinine Ratio Ur 23.0 <30 ug/mg cr [facility] Comment:Albumin/Creatinine R atio Reference Ranges: Normal: < 30 ug/mg creatinine Microalbuminuria: 30 - 300 ug/mg creatinineClinical Albuminuria: > 300 ug/mg creatinine Urine (Urine, Random) 01/27/2025 10:56 AM EDT 01/27/2025 11:31 AM EDT Summer Ball ANP LAB URINE ORDERABLES Final Resul t Performing Organization Address [facility] Co de Phone Number [facility] [address] [place] [phone] * Magnesium (01/27/2025 10:56 AM EDT) Magnesium 2.1 1.6 - 2.6 mg/dL [facility] Blood Venous blood specimen / Unknown 01/27/2025 10:56 AM EDT 01/27/2025 11:45 AM EDT Summer Ball ANP LAB BLOOD ORDERABLES Final Resul t Performing Organization Address [facility] de Phone Number [facility] [address] [place] [phone] * Vitamin B12 (01/27/2025 10:56 AM EDT) Pathologist [facility] Vitamin B12 292 200 - 900 pg/mL [facility] Comment:NORMAL 200-900 PG/ML INDETERMINATE 160-199 PG/ML DEFICIENT < 160 PG/ML Blood Venous blood specimen / Unknown 01/27/2025 10:56 AM EDT 01/27/2025 11:45 AM EDT Summer Ball ANP LAB BLOOD ORDERABLES Final Resul t Performing Organization Address [facility] Phone Number [facility] [address] [place] [phone] * Lipid Panel, Standard (01/27/2025 10:56 AM EDT) Triglycerides 68 <150 mg/dL [facility] Comment:Desirable Triglyceri de: less than 150 mg/dLBorderline High Triglyceride 150-199 mg/dLHigh Triglyceride: 200-499 mg/dLVery High Triglyceride: greater than or equal to 5OO mg/dL Cholesterol 159 <200 mg/dL [facility] Comment:Desirable Cholestero l: less than 200 mg/dLBorderline High Cholesterol: 200-239 mg/dLHigh Cholesterol: greater than 239 mg/dL LDL Cholesterol Calculated 85 <100 mg/dL [facility] Comment:Desirable LDL: less than 100 mg/dLNear Optimal/Above Optimal LDL: 110- 129 mg/dLBorderline High LDL: 130-159 mg/dLHigh LDL: 160-189 mg/dLVery High LDL: greater than or equal to 190 mg/dL HDL Cholesterol 61 >40 mg/dL [facility] Comment:Desirable HDL: great er than 40 mg/dL Note: This HDL assay may give artificially low results in patients with liver disease. Blood Venous blood specimen / Unknown 01/27/2025 10:56 AM EDT 01/27/2025 11:45 AM EDT Summer Ball ANP LAB BLOOD ORDERABLES Final Resul t [facility] [address] [place] [address] [phone] * (ABNORMAL) POCT HGB A1C (01/27/2025 [...] Unknown 01/27/2025 10:10 AM EDT us Summer BROWNING POINT OF CARE TEST ENTER/EDIT OR DERABLES Final Result * Hm Colonoscopy (10/18/2022) Pathologist [facility] Colonoscopy Normal Normal Historical Provider MD HEALTH MAINTENANCE Final Result * HEPATITIS C AB W/REFL TO HCV RNA, QN, PCR (07/22/2020 8:45 AM EST) Pathologist [facility] HEPATITIS C ANTIBODY NON-REACT MARIYA NON-REACT MARIYA [facility] INDEX 0.01 <1.00 [facility] Comment: HCV antibody was non-reactive. There is no laboratory evidence of HCV infection. In most cases, no further action is required. However, if recent HCV exposure is suspected, a test for HCV RNA (test code 25086) is suggested. For additional information please refer to http://education.StudioEX/faq/HVW60g2 (This link is being provided for informational/ educational purposes only.) 07/22/2020 8:45 AM EST us Summer Ball ANP HISTORICAL/NON ORDERABLE LABS Fi nal Result Performing Organization Address City/State/[facility] Co de Phone Number [facility] [address] * HIV 1/2 ANTIGEN/ANTIBODY,FOURTH GENERATION W/RFL (07/22/2020 8:45 AM EST) Pathologist [facility] HIV-1/2 ANTIGEN AND ANTIBODIES, 4TH GENERATION W/ REFLEX NON-REACT MARIYA NON-REACT MARIYA [facility] Comment: HIV-1 antigen and HIV-1/HIV-2 [...] purpose. For additional information please refer to http://education.Leaderz.PrestoBox/faq/YYM232 (This link is being provided for informational/ educational purposes only.) The performance of this assay has not been clinically validated in patients less than 2 years old. 07/22/2020 8:45 AM EST [facility] LAB BLOOD ORDERABLES Final Resul t [facility] [address] from Last 3 Months or Most Recently Relevant to Health Maintenance Insurance MEDICARE [facility] MEDICAID STAND ADULT Care Teams Staff Analyst Relationship Specialty Start Date End Date Summer Ball ANP [address] [place] [address] PCP - General Family Medicine 06/28/20
== END ==
LOC: HO.CARD 08:40
PROVIDERS: PCP Nurse Practitioner Primary Care; Visit Provider Internal Medicine Cardiovascular Disease
DX: I25.10 Atherosclerotic heart disease of native coronary artery without angina pectoris (principal); R07.9 Chest pain, unspecified; Z86.79 Personal history of other diseases of the circulatory system; Z85.29 Personal history of malignant neoplasm of other respiratory and intrathoracic organs; Z88.9 Allergy status to unspecified drugs, medicaments and biological substances
CPT/HCPCS: 78452; 93017; A9500

== ENCOUNTER → 2025-02-23 08:42 | Outpatient (BNV) | payer MEDICARE, MEDICAID, SELFPAY | PROVIDERS: PCP Nurse Practitioner Primary Care | DX: R06.02 Shortness of breath (principal); I49.3 Ventricular premature depolarization | CPT/HCPCS: 78452; 93016; 93018 ==

== ENCOUNTER 2025-03-11 08:05 | Outpatient (AMB) | payer MEDICARE, MEDICAID, SELFPAY ==
--- OUTSIDE RECORDS SUMMARY | 2025-03-11 08:08 | XMS_ITS | Clinical Summary ---
Author Organization [employer] Address [address] [facility] [address] [place] [address] Care Team Providers Care Scudding Inspector Name Role Phone Vikas Casiano Primary Care Provider [phone] Allergies No known active allergies Medications albuterol [...] 10d 30 tablet 023 Active Continuous Glucose Rental Representative (FreeStyle Lex 2 [place]) deviceIndication s:Type 2 diabetes mellitus with hyperlipidemia (CMS/HCC) (CMS/[facility]ERLY [facility]),Hypogl ycemia Scan sensor every 4-6 hours 1 [...] ions:Type 2 diabetes mellitus with hyperlipidemia (CMS/HCC) ([facility]/FORMERLY [facility]) INJECT 56 UNITS SUBCUTANEOUSLY ONCE DAILY EVERY MORNING 15 mL 024 Active Anoro Ellipta 62.5-25 MCG/ACT aerosol powderIndication s:Moderate persistent asthma without complication INHALE 1 PUFF BY MOUTH EVERY DAY AT THE SAME TIME RINSE MOUTH AFTER USING 60 each 2 025 Active FREESTYLE LITE test stripIndications :Type 2 diabetes mellitus with hyperlipidemia ([facility]/HCC) ([facility]/FORMERLY [facility]),Hypogl ycemia TEST BLOOD SUGAR 3 TIMES A DAY 100 strip 025 Active BD Pen Needle Mere Ultrafine 32G X 4 MM miscIndications: Type 2 diabetes mellitus treated with insulin ([facility]/FORMERLY [facility]) USE THREE TIMES DAILY DIRECTED 100 each 6 025 Active insulin aspart FlexPen (NovoLOG) 100 UNIT/ML penIndications:T ype 2 diabetes mellitus with hyperlipidemia ([facility]/HCC) ([facility]ERLY [facility]) Inject 8-14 units subcutaneously twice daily with largest meals of the day 15 mL 2 025 Active cholecalciferol (Vitamin D-3) 10 MCG (400 UNIT) tablet TAKE 1 TABLET BY MOUTH EVERY MORNING 90 tablet 3 025 Active TRUEplus Lancets 33G miscIndications: Type 2 diabetes mellitus with hyperlipidemia ([facility]/HCC) ([facility]) Use to test BG 3 times daily 100 each 025 Active nicotine polacrilex (Nicorette) 2 MG gumIndications:C igarette nicotine dependence without complication Chew 1 each (2 mg) if needed for smoking cessation. Every 1-2 hrs as needed in place of cigarette 100 each 025 Active nicotine (Nicoderm CQ) 14 MG/24HR patchIndications :Cigarette nicotine dependence without complication Place 1 patch on the skin 1 (one) time each day at the same time. 42 patch 025 Active nicotine (Nicoderm CQ) 7 MG/24HR patchIndications [...] SEA NECESARIO) 60 capsule 1 025 Active omeprazole (PriLOSEC) [address] capsule TAKE 1 CAPSULE BY MOUTH EVERY MORNING 30 capsule 1 025 Active Dulaglutide (Trulicity) 0.75 MG/0.5ML solution auto-injectorInd ications:Type 2 diabetes mellitus with hyperlipidemia (CMS/HCC) (CMS/HCC) Inject 0.75 mg under the skin 1 (one) time per week. 2 mL 025 Active omeprazole (PriLOSEC) [address] capsule TAKE 1 CAPSULE BY MOUTH EVERY MORNING 30 capsule 1 025 2024 Discontinued Dulaglutide (Trulicity) 0.75 MG/0.5ML solution auto-injectorInd ications:Type 2 diabetes mellitus with hyperlipidemia (CMS/HCC) (CMS/HCC) Inject 0.75 mg under the skin 1 (one) time per week. 2 mL 025 2024 Discontinued(D uplicate order (will not trigger notification to Pharmacy)) amoxicillin-clav ulanate (Augmentin) 875-125 MG tabletIndication s:Crushing injury of right little finger, initial encounter Take 1 tablet by mouth 2 times daily for 2 days. 4 tablet 025 2024 Hospital, Clinic, or Other Facility Administered Medication Ordered Dose Route Frequency Start Date End Date Status cyanocobalamin (Vitamin B-12) injection 1,000 mcgIndications:Low serum vitamin B12,Numbness in feet 1000 mcg IM Weekly 02/05/2025 03/03/2025 Ended Active Problems Problem Noted Date Diagnosed Date [...] Encounters Date Type Department Care Team Description 03/10/2025 Orders Only [facility] [address] [place] [address] Vikas Casiano, ANP Type 2 diabetes mellitus with hyperlipidemia (CMS/HCC) (CMS/[facility]) (Primary Dx) 03/09/2025 Refill [facility] [address] Vikas Casiano ANP Type 2 diabetes mellitus with hyperlipidemia (CMS/HCC) ([facility]/HCC) 03/05/2025 Refill [facility] [place] [address] Vikas Casiano ANP 03/03/2025 9:30 AM EDT Clinical Support [address] [place] [address] Tatiana Kevin RN B12 deficiency 03/03/2025 Travel 02/24/2025 1:00 PM EDT Clinical Support [address] [place] [address] Tatiana Kevin RN B12 deficiency 02/24/2025 Travel 02/23/2025 Orders Only [facility] External Provider, [facility] 02/18/2025 11:30 AM EDT Clinical Support [address] [address] Fany Chi RN Crushing injury of right little finger, subsequent encounter [S67.196D] 02/18/2025 Travel 02/17/2025 Results [facility]-Up [facility] [place] [address] Stefanie Garcia NP XR Hand 3+ Views Right 02/16/2025 2:30 PM EDT Clinical Support [address] [address] Shannon Mars RN B12 deficiency 02/16/2025 2:20 PM EDT Office Visit [facility] [place] [address] Stefanie Garcia NP Crushing injury of right little finger, initial encounter (Primary Dx) 02/16/2025 Travel 02/06/2025 9:00 AM EDT Clinical Support [facility] [place] [address] Tatiana Kevin RN B12 deficiency 02/06/2025 Travel 02/05/[address] [address] Vikas Casiano ANP No Show 02/01/2025 Refill [facility] [place] [address] Buck, MD Mauricio Diabetic polyneuropathy associated with type 2 diabetes mellitus ([facility]/HCC) 01/27/2025 9:45 AM EDT Office Visit [facility] [place] [address] Vikas Casiano ANP Type 2 diabetes mellitus with hyperlipidemia (CMS/HCC) ([facility]) (Primary Dx); Essential hypertension; Moderate persistent asthma without complication; Cigarette nicotine dependence without complication; Hypomagnesemia 01/27/2025 Results Follow-Up [facility] [place] [address] Vikas Casiano ANP POCT HGB A1C, POCT Glucose, Magnesium, Additional followed-up results: 3 01/27/2025 Travel 01/26/2025 Telephone [facility] [place] [address] Jonel Bishop MA Chart Prep 01/20/2025 Telephone [facility] [place] [address] Michelle Blunt, LENNY Paperwork/Forms 01/20/2025 Orders Only [facility] [place] [address] Vikas Casiano ANP Type 2 diabetes mellitus with hyperlipidemia ([facility]/HCC) ([facility]) (Primary Dx) 01/14/2025 Refill [facility] [place] [address] Vikas Casiano ANP 01/13/2025 Orders Only [facility] [place] [address] Vikas Casiano ANP Type 2 diabetes mellitus with hyperlipidemia ([facility]/HCC) ([facility]) (Primary Dx) 01/13/2025 Telephone [facility] [place] [address] Vikas Casiano ANP 01/09/2025 Refill [facility] [place] [address] Vikas Casiano ANP Type 2 diabetes mellitus treated with insulin (CMS/HCC) 01/06/2025 Refill [facility] [address] Vikas Casiano ANP Type 2 diabetes mellitus with hyperlipidemia ([facility]) ([facility]); Hypoglycemia 12/21/2024 Refill [facility] [address] [facility] [place] [address] Vikas Casiano ANP Moderate persistent asthma without complication 12/16/2024 Orders Only [facility] [address] [facility] [place] [address] Vikas Casiano ANP Type 2 diabetes mellitus with hyperlipidemia ([facility]) ([facility]); Hypoglycemia from Last 3 Months Immunizations Immunization Administration [...] Description 04/23/2025 11:00 AM EDT Office Visit [facility] [address] [place] [address] Vikas Casiano, ANP [address] [place] [address] Health Maintenance Due Date Last Done Comments CT Colonography 1960 FIT DNA/Cologuard 1960 FIT 1960 FOBT 1960 Sigmoidoscopy 1960 RSV Patients and Patients Aged 60 years or older (1 - Risk 60-74 years 1-dose series) 2020 Zoster Vaccines (2 of 2) 09/28/2020 08/03/2020 COVID-19 Vaccine (2 season) 2024 10/27/2020 Dental Oral Exam 10/14/2024 [...] Procedure Name Priority Date/Time Associated Diagnosis Comments STRESS TEST WITH MYOCARDIAL PERFUSION Routine 02/23/2025 8:21 AM EDT XR HAND 3+ VIEWS RIGHT Routine 02/16/2025 [...] Recently Relevant to Health Maintenance Results * Stress test with myocardial perfusion (02/23/2025 8:21 AM EDT) 02/23/2025 8:21 AM EDT Narrative [facility] - 02/25/2025 11:27 AM EDT [place] [address] Nuclear Medicine Report Signed Patient: Jabari Blunt MR#: [id number] : 1960 Acct:[id number] Age/Sex: 64 / M ADM Date: 02/23/25 Loc: [facility] Attending Dr: Slade Varma MD Ordering Physician: Slade Varma MD Date of Service: 02/23/25 Procedure(s): NM cardiolite stress test Accession Number(s): [id number] cc: VIKAS CASIANO MEASUREMENT SPECIALIST; Slade Varma MD EXERCISE MYOCARDIAL PERFUSION STUDY INDICATION: Chest pain TECHNIQUE: The patient was brought in for an exercise perfusion study on 02/23/2025. Patient performed exercise as per Donny protocol and was injected 30 mCi of sestamibi once target heart rate was achieved. Images were obtained using the SPECT gamma camera interlaced with the gating device. Images were obtained in supine position. Resting perfusion study was performed on 02/25/2025. Patient was administered 30 mCi of sestamibi intravenously at rest. Images were then obtained in supine position. Total DLP 68 mGy-cm. Images were processed with the software and compared side to side in short axis, horizontal long axis and vertical long axis views. FINDINGS: Raw aquisition reviewed. The stress perfusion study showed decreased tracer uptake along the inferior wall. There is improvement with CT attenuation correction suggestive of diaphragmatic attenuation artifact. The gated study shows normal LV systolic function with calculated LVEF of 59%. LV cavity is normal in size. The gated study shows normal wall thickening and contraction of segments. Resting study shows diminished tracer uptake along the inferior wall. There is improvement with CT attenuation correction suggestive of diaphragmatic attenuation artifact. Gating at rest reveals normal wall motion with ejection fraction at 50%. The findings are consistent with fixed inferior perfusion defect likely from diaphragmatic attenuation artifact. No clear reversible defects. NM/NM cardiolite stress test IMPRESSION: 1. Myocardial perfusion imaging study shows probably normal myocardial perfusion. 2. Gated LVEF is 59% during stress and 50% during rest. Correlate with echocardiogram. 3. Transient ischemic dilatation not present. EKG component of the test reported separately. Electronically signed by: Mario Cardenas MD 02/25/2025 11:24 AM EDT Dictated By: Mario Cardenas MD Signed By: <Electronically signed by Mario Cardenas MD in OV> 02/25/25 1124 DD/ 0821 TD/TT: 02/25/25 0900 Quality Control Auditor: Procedure Note Donotuseinterpreter, Image - 02/25/[address] [address] Nuclear Medicine Report Signed Patient: Jabari BluntMR#: [id number] : 1960Acct:[id number] Age/Sex: 64 / MADM Date: 02/23/25 Loc: HO.CARD Attending Dr: Slade Varma MD Ordering Physician: Slade Varma MD Date of Service: 02/23/25 Procedure(s): PR cardiolite stress test Accession Number(s): [id number] cc: VIKAS CASIANO MEASUREMENT SPECIALIST; Slade Varma MD EXERCISE MYOCARDIAL PERFUSION STUDY INDICATION: Chest pain TECHNIQUE: The patient was brought in for an exercise perfusion study on 02/23/2025. Patient performed exercise as per Donny protocol and was injected 30 mCi of sestamibi once target heart rate was achieved. Images were obtained using the SPECT gamma camera interlaced with the gating device. Images were obtained in supine position. Resting perfusion study was performed on 02/25/2025. Patient was administered 30 mCi of sestamibi intravenously at rest. Images were then obtained in supine position. Total DLP 68 mGy-cm. Images were processed with the software and compared side to side in short axis, horizontal long axis and vertical long axis views. FINDINGS: Raw aquisition reviewed. The stress perfusion study showed decreased tracer uptake along the inferior wall. There is improvement with CT attenuation correction suggestive of diaphragmatic attenuation artifact. The gated study shows normal LV systolic function with calculated LVEF of 59%. LV cavity is normal in size. The gated study shows normal wall thickening and contraction of segments. Resting study shows diminished tracer uptake along the inferior wall. There is improvement with CT attenuation correction suggestive of diaphragmatic attenuation artifact. Gating at rest reveals normal wall motion with ejection fraction at 50%. The findings are consistent with fixed inferior perfusion defect likely from diaphragmatic attenuation artifact. No clear reversible defects. NM/NM cardiolite stress test IMPRESSION: 1. Myocardial perfusion imaging study shows probably normal myocardial perfusion. 2. Gated LVEF is 59% during stress and 50% during rest. Correlate with echocardiogram. 3. Transient ischemic dilatation not present. EKG component of the test reported separately. Electronically signed by: Mario Cardenas MD 02/25/2025 11:24 AM EDT Dictated By: Mario Cardenas MD Signed By: <Electronically signed by Mario Cardenas MD inOV> 02/25/25 1124 DD/ 0821 TD/TT: 02/25/25 0900 Quality Control Auditor: us [facility] External Provider CV STRE SS PROCEDURES Final Result [facility] [address] [place] [phone] * XR Hand 3+ Views Right (02/16/2025 2:41 PM EDT) Anatomical Region Laterality Modality Upper Extremities, Hand Right Radiogra phic Imaging 02/16/2025 2:41 PM EDT Narrative 02/16/2025 4:07 PM EDT [facility] [address] [place] [address] XRay Report Signed Patient: Jabari Blunt MR#: [id number] : 1960 Acct:[id number] Age/Sex: 64 / M ADM Date: 02/16/25 Loc: HO.HHCX Attending Dr: Stefanie Garcia Ordering Physician: Stefanie Garcia Date of Service: 02/16/25 Procedure(s): XR hand RT min 3V Accession Number(s): [id number] cc: Stefanie Garcia EXAMINATION: XR HAND, RIGHT [...] 02/16/25 1604 DD/ 1441 TD/TT: 02/16/25 1452 Quality Control Auditor: Procedure Note Donotdutchinterpreter, Image - 02/16/2025 [facility] [address] [place] [address] XRay Report Signed Patient: Jabari BluntMR#: [id number] : 1960Acct:[id number] Age/Sex: 64 / MADM Date: 02/16/25 Loc: HO.HHCX Attending Dr: Stefanie Garcia Ordering Physician: Stefanie Garcia Date of Service: 02/16/25 Procedure(s): XR hand RT min 3V Accession Number(s): [id number] cc: Stefanie Garcia EXAMINATION: XR HAND, RIGHT [...] 02/16/25 1604 DD/ 1441 TD/TT: 02/16/25 1452 Quality Control Auditor: Stefanie Garcia MEASUREMENT SPECIALIST IMG XR PROCEDURES Final Result * Albumin, Random Urine W/Creatinine (01/27/2025 10:56 AM EDT) Creatinine, Urine 138.71 mg/dL [facility] Microalbumin Urine 32.0 mg/L [facility] Microalbum Creatinine Ratio Ur 23.0 <30 ug/mg cr [facility] Comment:Albumin/Creatinine R atio Reference Ranges: Normal: < 30 ug/mg creatinine Microalbuminuria: 30 - 300 ug/mg creatinineClinical Albuminuria: > 300 ug/mg creatinine Urine (Urine, Random) 01/27/2025 10:56 AM EDT 01/27/2025 11:31 AM EDT Vikas Casiano ANP LAB URINE ORDERABLES Final Resul t Performing Organization Address [facility] Phone Number [facility] [address] [place] [phone] * Magnesium (01/27/2025 10:56 AM EDT) Magnesium 2.1 1.6 - 2.6 mg/dL [facility] Blood Venous blood specimen / Unknown 01/27/2025 10:56 AM EDT 01/27/2025 11:45 AM EDT us Vikas Casiano ANP LAB BLOOD ORDERABLES Final Resul t Performing Organization Address [facility] Phone Number [facility] [address] [place] [phone] * Vitamin B12 (01/27/2025 10:56 AM EDT) Vitamin B12 292 200 - 900 pg/mL [facility] Comment:NORMAL 200-900 PG/ML INDETERMINATE 160-199 PG/ML DEFICIENT < 160 PG/ML Blood Venous blood specimen / Unknown 01/27/2025 10:56 AM EDT 01/27/2025 11:45 AM EDT us Vikas Casiano ANP LAB BLOOD ORDERABLES Final Resul t Performing Organization Address [facility] Phone Number [facility] [address] [place] [phone] * Lipid Panel, Standard (01/27/2025 10:56 AM EDT) Triglycerides 68 <150 mg/dL [facility] Comment:Desirable Triglyceri de: less [...] 190 mg/dL HDL Cholesterol 61 >40 mg/dL [facility] Comment:Desirable HDL: great er than 40 mg/dL Note: This HDL assay may give artificially low results in patients with liver disease. Blood Venous blood specimen / Unknown 01/27/2025 10:56 AM EDT 01/27/2025 11:45 AM EDT us Vikas Casiano ANP LAB BLOOD ORDERABLES Final Resul t [facility] [address] [place] [phone] * (ABNORMAL) POCT HGB A1C (01/27/2025 10:13 AM EDT) Hemoglobin A1C 8.3(A) 4.0 - 6.0 % QC Media Lot # [id number] Lot# Expiration Date , Blood 01/27/2025 10:1 3 AM EDT us Vikas Casiano ANP POINT OF CARE TEST ENTER/EDIT OR DERABLES Final Result * POCT Glucose (01/27/2025 10:10 AM EDT) Glucose Blood, POC 200 60 - 200 mg/dL QC Media Lot # [id number] Lot# Expiration Date Blood Capillary blood specimen / Unknown 01/27/2025 10:10 AM EDT us Vikas Casiano ANP POINT OF CARE TEST ENTER/EDIT OR DERABLES Final Result * Hm Colonoscopy (10/18/2022) Pathologist [facility] Colonoscopy Normal Normal Historical Provider MD HEALTH MAINTENANCE Final Result * HEPATITIS C AB W/REFL TO HCV RNA, QN, PCR (07/22/2020 8:45 AM EST) Pathologist [facility] HEPATITIS C ANTIBODY NON-REACT MARIYA NON-REACT MARIYA [facility] INDEX 0.01 <1.00 [facility] Comment: HCV antibody was non-reactive. There is no laboratory evidence of HCV infection. In most cases, no further action is required. However, if recent HCV exposure is suspected, a test for HCV RNA (test code 82550) is suggested. For additional information please refer to http://PromoteU.NowThis News/faq/GBI64f5 (This link is being provided for informational/ educational purposes only.) 07/22/2020 8:45 AM EST Vikas Casiano ANP HISTORICAL/NON ORDERABLE LABS Fi nal Result [facility] [address] * HIV 1/2 ANTIGEN/ANTIBODY,FOURTH GENERATION W/RFL (07/22/2020 8:45 AM EST) Pathologist [facility] HIV-1/2 ANTIGEN AND ANTIBODIES, 4TH GENERATION W/ REFLEX NON-REACT MARIYA NON-REACT MARIYA [facility] Comment: HIV-1 antigen and HIV-1/HIV-2 [...] purpose. For additional information please refer to http://PromoteU.NowThis News/faq/TBQ943 (This link is being provided for informational/ educational purposes only.) The performance of this assay has not been clinically validated in patients less than 2 years old. 07/22/2020 8:45 AM EST [facility] LAB BLOOD ORDERABLES Final Resul t [facility] [address] [place] [address], from Last 3 Months or Most Recently Relevant to Health Maintenance Insurance MEDICARE [facility] ST[employer] ADULT Care Teams Scudding Inspector Relationship Specialty Start Date End Date Vikas Casiano ANP [address] [place] [phone] PCP - General Family Medicine 06/28/20
--- NOTE | 2025-03-11 08:17 | MHC.OFFVIS ---
Intake Visit Reasons: OV- Right 5th Digit Crush Injury 02/14/25-w/xrays Intake Note: Prashanth 64 yr old right hand dominant male presents today for his follow up visit for his Right small finger open distal phalanx fracture, Date of injury 02/14/2025/. States he has kept wound clean and has been washing with soap and water. States he has no pain but is limited ROM and not able to straigten it out. Patient has finished taking his antibiotocs. Beauty Specialist Required: Yes Beauty Specialist Name: Sandra RODGERS/REESE Allergies No Known Allergies Allergy (Verified 03/11/25 08:44) HPI HPI OV- Right 5th Digit Crush Injury 02/14/25-w/xrays: Details: Jabari is a 64-year-old right hand dominant Frisian speaking man who sustained a crush injury to the tip of his right small finger on 02/14/2025 when his finger got caught between something in a boiler. This happened in his home. He says he was seen in the emergency department and placed on antibiotics. He says he is doing better and he has been cleaning his finger in the sink. He has completed his Abx as instructed. He denies any pain but says he still has limited ROM. He works in [employer], with his own company. [facility] Medical History Nicotine dependence, cigarettes, uncomplicated Tubular adenoma of colon (~2011) Type 2 diabetes mellitus Coronary artery disease Hyperlipidemia Hypertension Asthma Surgical History History of cervical discectomy History of colonoscopy History of cardiac cath (~2011) Family History Maternal Uncle Prostate cancer Family/Other Skin cancer Social History Alcohol intake: current Alcohol intake frequency: holidays/special occasions only Patient Tobacco Use Status: Current everyday Tobacco user Cigarettes Per Day: 10 Years Smoked: onset 20yo, 1/2-1ppd x 42yrs, 30pyh Review of Systems Const All systems reviewed & are unremarkable except as noted in HPI and below Physical Exam Const General: no acute distress and alert Orientation/consciousness: patient oriented x3 Neuro General: patient oriented x3 Extrem Other: Evaluation of Right Upper Extremity: The patient is alert, oriented, and in no acute distress He appears to have some bright purple medicine in his wound He has a flexion contracture at the small finger PIP joint and says that he had surgery on the small finger PIP joint in [place] years ago. He is able to flex the digit to a fist but is only able to open the PIP joint of ~80 degrees from full extension He can make a fist and he says his ROM is back to normal He has an injury to the tip of his right small finger. The distal half of the nail bed is attached, and it looks like he has got a subungual hematoma under the proximal aspect. The wound has now closed & there is no drainage No tenderness at the tip of the finger. Radiographs: 3 views of the right hand show a minimally displaced tuft fracture of the right small finger distal phalanx. PIP joint is held in some flexion. Psych Appearance: grossly normal Affect: normal affect Attitude: cooperative Assessment & Plan Assessment & Plan (1) Open fracture of distal phalanx of right little finger: Code(s): S62.636B - Displaced fracture of distal phalanx of right little finger, initial encounter for open fracture Category: Medical Plan Assessment and plan: 1. 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 He will follow up prn Scribed for Libra Ramirez MD by Raz Pollock, medical billing and coding specialist, on 03/11/25 at 8:45 AM, EST. Coding Level of Care Code Global (79002) Diagnoses Open fracture of distal phalanx of right little finger S62.636B
== END 2025-03-11 09:06 | disposition home or self-care (01) ==
LOC: HO.HOS 08:06
PROVIDERS: Visit Provider Orthopaedic Surgery
DX: S62.636B Displaced fracture of distal phalanx of right little finger, initial encounter for open fracture (principal)
CPT/HCPCS: 99213

== ENCOUNTER → 2025-03-11 08:05 | Outpatient (BNVA) | payer MEDICARE, MEDICAID, SELFPAY | PROVIDERS: Visit Provider Orthopaedic Surgery | DX: S62.636D Displaced fracture of distal phalanx of right little finger, subsequent encounter for fracture with routine healing (principal) | CPT/HCPCS: 99212 ==